=== PATIENT | female | born 2000 | race Native Hawaiian/Other Pacific Islander ===

== ENCOUNTER 2018-07-23 22:40 | Emergency (ER) | payer OTHER ==
[~2018-07-23] VITALS: Ht 147.3 cm; Wt 59.1 kg
[2018-07-23] MEDS ORDERED: CYCLOBENZAPRINE 10 MG TAB PO ONE (23:45)
[2018-07-23] MEDS ORDERED: ONDANSETRON 4MG/2ML VIAL (J2405) IV ONE (23:45)
[2018-07-23] MEDS ORDERED: KETOROLAC 30 MG/ML VIAL (J1885) IV ONE (23:45)
[2018-07-24 00:15] LABS: BASO # 0.1 10^3/uL (0.0-0.2); BASO % 0.5 % (0.0-1.0); EOS # 0.1 10^3/uL (0.0-0.50); EOS % 0.5 % (0.0-3.0); HEMATOCRIT 33.7 % (36.0-47.0); HEMOGLOBIN 11.6 g/dl (12.0-15.5); LYMPH # 1.3 10^3/uL (1.5-6.5); LYMPH % 12.4 % (24.0-44.0); MEAN CORPUSCULAR HEMOGLOBIN 30.8 pg (27.0-33.0); MEAN CORPUSCULAR HGB CONC 34.4 g/dl (32.0-36.5); MEAN CORPUSCULAR VOLUME 89.4 fl (80.0-96.0); MONO # 0.7 10^3/uL (0.0-0.8); MONO % 6.6 % (0.0-5.0); NEUTROPHILS # 8.6 10^3/uL (1.8-7.7); NEUTROPHILS % 79.6 % (36.0-66.0); PLATELET COUNT, AUTOMATED 250 10^3/uL (150-450); RED BLOOD COUNT 3.77 10^6/uL (4.00-5.40); WHITE BLOOD COUNT 10.8 10^3/uL (4.0-10.0)
[2018-07-24 00:37] LABS: ALBUMIN 3.6 GM/DL (3.2-5.2); ALT/SGPT 34 U/L (12-78); BILIRUBIN,DIRECT < 0.1 MG/DL (0.0-0.2); BILIRUBIN,TOTAL 0.3 MG/DL (0.2-1.0); BLOOD UREA NITROGEN 6 MG/DL (7-18); CALCIUM LEVEL 8.2 MG/DL (8.5-10.1); CARBON DIOXIDE LEVEL 26 MEQ/L (21-32); CHLORIDE LEVEL 106 MEQ/L (98-107); CPK CREATINE PHOSPHOKINASE 208 U/L (26-192); CREATININE FOR GFR 0.91 MG/DL (0.55-1.30); GLUCOSE, FASTING 101 MG/DL (70-100); LIPASE 71 U/L (73-393); MB/CK RELATIVE INDEX 0.58 (< OR =4); POTASSIUM SERUM 3.9 MEQ/L (3.5-5.1); SODIUM LEVEL 140 MEQ/L (136-145); TOTAL PROTEIN 7.7 GM/DL (6.4-8.2); TROPONIN I < 0.02 NG/ML (< 0.10)
[2018-07-24] MEDS ORDERED: CYCL5TAB PO (01:38)
[2018-07-24] MEDS ORDERED: NS 500 ML IV ONE (01:45)
[2018-07-24 02:09] VITALS: BP 100/57
--- NOTE | 2018-07-24 08:27 | ECGEPIP ---
Stationary ECG Study [facility] - ED Test Date: 2018-07-24 Pat Name: ODILIA DEL CASTILLO Department: Room: - Gender: F Supervisor Offset Plate Preparation: : 2000 Requested By: SINGH Hamilton PA-C Order Number: [id number] Reading MD: Maximo Spring Measurements Intervals [place] Rate: 71 P: -34 WA: 179 QRS: 71 QRSD: 75 T: 38 QT: 363 QTc: 394 Interpretive Statements SINUS RHYTHM INCOMPLETE RIGHT BUNDLE BRANCH BLOCK BENIGN EARLY REPOLARIZATION NO PRIORS FOR COMPARISON Electronically Signed On 07-24-2018 8:27:20 EDT by Maximo Spring
== END 2018-07-24 02:15 | disposition home or self-care (01) ==
LOC: M ED 22:40
DX: M62.838 Other muscle spasm (principal); R79.89 Other specified abnormal findings of blood chemistry; Z79.3 Long term (current) use of hormonal contraceptives; Z87.891 Personal history of nicotine dependence
CPT/HCPCS: 80048; 80076; 82550; 82553; 83690; 84484; 85025; 85379; 93005; 96361; 96374; 96375; 99284; J1885; J2405

== ENCOUNTER 2018-08-10 06:11 | Emergency (ER) | payer OTHER ==
[~2018-08-10] VITALS: Ht 147.3 cm; Wt 59.1 kg
[~2018-08-10 06:11] MED LIST: CYCL5TAB PO
[2018-08-10] MEDS ORDERED: LO ESTRIN PO (06:22)
[2018-08-10] MEDS ORDERED: KETOROLAC 60 MG/2 ML VIAL (J1885) IM ONE (06:30)
[2018-08-10] MEDS ORDERED: SKEL800T97 PO (07:09)
[2018-08-10] MEDS ORDERED: PERCOCET 5MG/325MG TAB PO ONE (07:15)
[2018-08-10 07:25] VITALS: BP 141/81
== END 2018-08-10 07:34 | disposition home or self-care (01) ==
LOC: M ED 06:11
DX: M62.830 Muscle spasm of back (principal); G89.29 Other chronic pain; M54.9 Dorsalgia, unspecified; Z79.3 Long term (current) use of hormonal contraceptives; Z79.899 Other long term (current) drug therapy
CPT/HCPCS: 96372; 99283; J1885

== ENCOUNTER → 2018-08-28 | Outpatient (CLI) | payer OTHER ==
[~2018-08-28] MED LIST changes: +LO ESTRIN PO; +SKEL800T97 PO
== END ==
LOC: M PLARAD 09:07
PROVIDERS: ATTEND Physician Assistant Medical
DX: M25.561 Pain in right knee (principal)

== ENCOUNTER → 2018-08-28 | Outpatient (CLI) | payer OTHER ==
--- NOTE | 2018-08-28 12:31 | REP ---
MRI THORACIC SPINE WITHOUT CONTRAST: HISTORY: Dorsalgia. TECHNIQUE: Sagittal and axial T1- and T2-weighted scans are acquired in the usual fashion with and without fat saturation. Sequences include spin echo, turbo spin-echo, and STIR imaging sequences. MRI FINDINGS: Thoracic vertebral body heights are preserved. Alignment is normal. Thoracic cord is normal in coarse, caliber, and signal intensity on T1- and T2-weighted scans. No thoracic disc herniation is seen. No neural foraminal lesion is seen. No central canal stenosis or cord compression is seen. No bony destructive lesion noted. No extra spinal abnormality. IMPRESSION: Normal MRI thoracic spine. Electronically Signed by Ronny Cardoso MD 08/28/2018 03:34 P
--- NOTE | 2018-08-28 13:49 | REP ---
MRI RIGHT KNEE: TECHNIQUE: Axial proton density fat saturation, sagittal proton density T2 STIR, water excitation, coronal proton density, proton density fat saturation. There is no evidence of a meniscal tear. The cruciate and collateral ligaments are intact. The extensor mechanism is intact. The cartilaginous surfaces appear smooth. No osteochondral defect is seen. There is no bone marrow edema or occult fracture. The medial and lateral patellar retinacula are intact. There is a normal amount of joint fluid. No popliteal cyst is seen. IMPRESSION: Essentially negative MRI right knee. Electronically Signed by Darin Peterson MD 08/28/2018 02:36 P
== END ==
LOC: M PLARAD 09:11
PROVIDERS: ATTEND Emergency Medicine
DX: M54.9 Dorsalgia, unspecified (principal)

== ENCOUNTER 2019-02-11 07:10 | Emergency (ER) | payer OTHER ==
[~2019-02-11] VITALS: Ht 147.3 cm; Wt 65.8 kg
[2019-02-11 07:11] VITALS: BP 118/71
[2019-02-11] MEDS ORDERED: CELE1CAP4 PO (07:18)
[2019-02-11] MEDS ORDERED: ZOLO50TA PO (07:18)
[2019-02-11] MEDS ORDERED: TIZA4CAP PO (07:18)
[2019-02-11] MEDS ORDERED: GABA600T4 PO (07:18)
[2019-02-11] MEDS ORDERED: KETOROLAC 60 MG/2 ML VIAL (J1885) IM ONE (07:45)
== END 2019-02-11 08:31 | disposition home or self-care (01) ==
LOC: M ED 07:10
DX: G89.29 Other chronic pain (principal); M54.9 Dorsalgia, unspecified; M62.838 Other muscle spasm; Z79.899 Other long term (current) drug therapy
CPT/HCPCS: 96372; 99282; J1885

== ENCOUNTER 2019-05-03 09:38 | Emergency (ER) | payer OTHER ==
[~2019-05-03] VITALS: Ht 147.3 cm; Wt 74.1 kg
[~2019-05-03 09:38] MED LIST changes: +CELE1CAP4 PO; +GABA600T4 PO; +TIZA4CAP PO; +ZOLO50TA PO
[2019-05-03] MEDS ORDERED: LIDOCAINE 5% (LIDODERM) PATCH TD ONE (11:15)
[2019-05-03] MEDS ORDERED: NAPROXEN 250 MG TAB PO ONE (11:45)
[2019-05-03] MEDS ORDERED: CYCLOBENZAPRINE 10 MG TAB PO ONE (11:45)
[2019-05-03] MEDS ORDERED: LIDO5DIS41 TOP (12:21)
[2019-05-03 12:31] VITALS: BP 111/55
[2019-05-03] MEDS ORDERED: **NOTE PATIENT COMMENT** MISC XX SCH (21:00)
== END 2019-05-03 12:48 | disposition home or self-care (01) ==
LOC: M ED 09:38
DX: G89.29 Other chronic pain (principal); M54.6 Pain in thoracic spine; Z79.899 Other long term (current) drug therapy

== ENCOUNTER 2019-06-28 12:31 | Emergency (ER) | payer OTHER ==
[~2019-06-28] VITALS: Ht 177.8 cm; Wt 81.8 kg
[~2019-06-28 12:31] MED LIST changes: +LIDO5DIS41 TOP
[2019-06-28 12:32] VITALS: BP 118/70
[2019-06-28] MEDS ORDERED: METH1TAB40 PO (12:40)
[2019-06-28] MEDS ORDERED: KETOROLAC 30 MG/ML 1ML VIAL IM ONE (13:00)
[2019-06-28] MEDS ORDERED: ACETAMINOPHEN 500 MG TAB PO ONE (13:00)
[2019-06-28] MEDS ORDERED: LOES1TAB12 PO (13:05)
[2019-06-28] MEDS ORDERED: FLUV25TA2 PO (13:05)
[2019-06-28] MEDS ORDERED: TRAZ-252 PO (13:05)
[2019-06-28] MEDS ORDERED: PRAZ1CAP PO (13:05)
[2019-06-28] MEDS ORDERED: VIST25CA PO (13:05)
[2019-06-28 13:14] LABS: BASO % 0.4 % (0.0-1.0); EOS % 0.4 % (0.0-3.0); HEMATOCRIT 37.1 % (36.0-47.0); HEMOGLOBIN 12.8 g/dl (12.0-15.5); LYMPH % 13.6 % (24.0-44.0); MEAN CORPUSCULAR HEMOGLOBIN 29.2 pg (27.0-33.0); MEAN CORPUSCULAR HGB CONC 34.5 g/dl (32.0-36.5); MEAN CORPUSCULAR VOLUME 84.7 fl (80.0-96.0); MONO # 0.3 10^3/uL (0.0-0.8); MONO % 3.8 % (0.0-5.0); NEUTROPHILS # 6.2 10^3/uL (1.5-8.5); NEUTROPHILS % 81.7 % (36.0-66.0); PLATELET COUNT, AUTOMATED 303 10^3/uL (150-450); RED BLOOD COUNT 4.38 10^6/uL (4.00-5.40); WHITE BLOOD COUNT 7.6 10^3/uL (4.0-10.0)
[2019-06-28] MEDS ORDERED: IBUP-1022 PO (13:42)
[2019-06-28] MEDS ORDERED: ACET-683 PO (13:42)
[2019-06-29] MEDS ORDERED: AUGM875T28 PO (18:18)
[2019-06-29] MEDS ORDERED: ZOFR4TAB16 PO (18:18)
[2019-06-29] MEDS ORDERED: KETO10TAB PO (18:18)
== END 2019-06-28 13:50 | disposition home or self-care (01) ==
LOC: M ED 12:31
DX: M54.5 Low back pain (principal); M54.6 Pain in thoracic spine; G89.29 Other chronic pain; F41.9 Anxiety disorder, unspecified; F32.9 Major depressive disorder, single episode, unspecified; F17.290 Nicotine dependence, other tobacco product, uncomplicated; Z79.899 Other long term (current) drug therapy; Z79.3 Long term (current) use of hormonal contraceptives
CPT/HCPCS: 36415; 84702; 85025; 96372; 99282; J1885

== ENCOUNTER 2019-06-29 13:36 | Emergency (ER) | payer OTHER ==
[~2019-06-29] VITALS: Ht 147.3 cm; Wt 81.0 kg
[~2019-06-29 13:36] MED LIST changes: +ACET-683 PO; +FLUV25TA2 PO; +IBUP-1022 PO; +LOES1TAB12 PO; +METH1TAB40 PO; +PRAZ1CAP PO; +TRAZ-252 PO; +VIST25CA PO
[2019-06-29] MEDS ORDERED: KETOROLAC 30 MG/ML 1ML VIAL IV ONE (14:00)
[2019-06-29] MEDS ORDERED: NS 1,000 ML IV ONE (14:00)
[2019-06-29] MEDS ORDERED: ONDANSETRON 4MG/2ML VIAL IV ONE (14:00)
[2019-06-29 14:29] LABS: BASO % 0.7 % (0.0-1.0); EOS # 0.1 10^3/uL (0.0-0.5); HEMATOCRIT 39.7 % (36.0-47.0); HEMOGLOBIN 13.3 g/dl (12.0-15.5); LYMPH # 1.3 10^3/uL (1.5-5.0); LYMPH % 22.3 % (24.0-44.0); MEAN CORPUSCULAR HEMOGLOBIN 28.9 pg (27.0-33.0); MEAN CORPUSCULAR HGB CONC 33.5 g/dl (32.0-36.5); MEAN CORPUSCULAR VOLUME 86.1 fl (80.0-96.0); MONO # 0.4 10^3/uL (0.0-0.8); MONO % 6.5 % (0.0-5.0); NEUTROPHILS # 4.1 10^3/uL (1.5-8.5); NEUTROPHILS % 69.2 % (36.0-66.0); PLATELET COUNT, AUTOMATED 353 10^3/uL (150-450); RED BLOOD COUNT 4.61 10^6/uL (4.00-5.40)
[2019-06-29 14:55] LABS: ALBUMIN 3.9 GM/DL (3.2-5.2); ALT/SGPT 118 U/L (12-78); BILIRUBIN,DIRECT 2.2 MG/DL (0.0-0.2); BILIRUBIN,TOTAL 2.7 MG/DL (0.2-1.0); BLOOD UREA NITROGEN 8 MG/DL (7-18); CALCIUM LEVEL 9.1 MG/DL (8.5-10.1); CARBON DIOXIDE LEVEL 28 MEQ/L (21-32); CHLORIDE LEVEL 104 MEQ/L (98-107); CREATININE FOR GFR 0.96 MG/DL (0.55-1.30); GLUCOSE, FASTING 98 MG/DL (70-100); LIPASE 129 U/L (73-393); POTASSIUM SERUM 3.8 MEQ/L (3.5-5.1); SODIUM LEVEL 137 MEQ/L (136-145); TOTAL PROTEIN 8.6 GM/DL (6.4-8.2)
[2019-06-29 15:09] LABS: HCG, SERUM QUALITATIVE NEGATIVE (NEGATIVE)
[2019-06-29] MEDS ORDERED: ISOVUE-370 76% 100ML VIAL As Ordered ONE (15:22)
--- NOTE | 2019-06-29 16:48 | REP ---
CT ABDOMEN AND PELVIS WITH IV CONTRAST: TECHNIQUE: Axial contrast enhanced images from the lung bases to the pubic symphysis using 100 mL Isovue 370 intravenous contrast material with multiplanar reformations. Visualized lung bases demonstrate mild dependent atelectatic changes. No mass is seen in the liver. The gallbladder is mildly distended. There are gallstones in the dependent portion of the gallbladder. Central common hepatic duct and intrahepatic bile duct dilatation is present. The distal common bile duct is not dilated. Pancreatic duct is not dilated. Spleen is normal in size with no intrinsic abnormality. Adrenals, pancreas, and kidneys are normal. There is no abdominal aortic aneurysm. There is no adrenopathy. There is no free air or free fluid. There is no bowel wall thickening. The appendix is normal. There is no pelvic mass. Urinary bladder is not well distended and not well evaluated. IMPRESSION: Gallstones in the gallbladder, which is mildly distended. There appears to be mild central intrahepatic biliary dilatation and mild common hepatic duct dilatation. Distal common bile duct is not dilated. Further evaluation may be made with ultrasound. Electronically Signed by Darin Peterson MD 06/29/2019 05:05 P
--- NOTE | 2019-06-29 17:42 | REPVR ---
PROCEDURE INFORMATION: Exam: US Abdomen Limited, Right Upper Quadrant Exam date and time: 06/29/2019 4:58 PM Age: 18 years old Clinical indication: Abdominal pain; Epigastric TECHNIQUE: Imaging protocol: Real-time ultrasound of the abdomen with image documentation. Examination was focused on the right upper quadrant. COMPARISON: CT ABD W/IV CONTRAST ONLY 06/29/2019 3:21 PM FINDINGS: Liver: Normal. No masses. Gallbladder: The gallbladder is moderately distended. A mobile shadowing stone is noted within the gallbladder. Borderline gallbladder wall thickening is present. There is no pericholecystic fluid. Common bile duct: The common bile duct is abnormally dilated, measuring 13 mm. A 6 mm slightly hyperechoic filling defect is present within the CBD, possibly representing a stone. Pancreas: Visualized pancreas is unremarkable. Right kidney: Normal. No mass. No hydronephrosis. IMPRESSION: Cholelithiasis and probable choledocholithiasis. The common bile duct is abnormally dilated, measuring 13 mm. Further evaluation is recommended. Electronically signed by: Marvin Murphy On 06/29/2019 17:41:48 PM
[2019-06-29 18:00] VITALS: BP 128/82
[2019-06-29] MEDS ORDERED: ZOFR4TAB16 PO (18:18)
[2019-06-29] MEDS ORDERED: KETO10TAB PO (18:18)
[2019-06-29] MEDS ORDERED: AUGM875T28 PO (18:18)
--- NOTE | 2019-06-30 09:35 | ED PDOC ---
Post-Departure Follow-Up dr armenta faxed formal report of gb us and ct abd/p for fu Dario Cortes MD Jun 30, 2019 09:35
[2019-06-30 10:58] LABS: HEPATITIS A ANTIBODY IGM NEGATIVE (NEGATIVE); HEPATITIS B CORE ANTIBODY IGM NEGATIVE (NEGATIVE); HEPATITIS B SURFACE ANTIGEN NEGATIVE (NEGATIVE); HEPATITIS C VIRUS ABY INDEX 0.5 INDEX (<0.8)
[2019-06-30] MEDS ORDERED: PRAZ5CAP22 PO (17:21)
[2019-06-30] MEDS ORDERED: ACET-907 PO (17:21)
[2019-06-30] MEDS ORDERED: FLUV50TA PO (17:27)
[2019-06-30] MEDS ORDERED: MIRT1TAB15 PO (17:27)
[2019-06-30] MEDS ORDERED: HYDR50CA2 PO (17:27)
[2019-06-30] MEDS ORDERED: LOES1TAB7 PO (17:27)
== END 2019-06-29 18:33 | disposition home or self-care (01) ==
LOC: M ED 13:36
DX: N39.0 Urinary tract infection, site not specified (principal); K80.20 Calculus of gallbladder without cholecystitis without obstruction; K83.8 Other specified diseases of biliary tract; K75.9 Inflammatory liver disease, unspecified; M54.5 Low back pain; Z79.899 Other long term (current) drug therapy; Z79.3 Long term (current) use of hormonal contraceptives
CPT/HCPCS: 36415; 74160; 76705; 80048; 80076; 81001; 83690; 84703; 85025; 86705; 86709; 86803; 87088; 87186; 87340; 96361; 96374; 96375; 99284; J1885; J2405; Q9967

== ENCOUNTER 2019-06-30 14:59 | Inpatient (IN) | payer OTHER ==
[~2019-06-30] VITALS: Ht 147.3 cm; Wt 81.0 kg
[~2019-06-30 14:59] MED LIST changes: +AUGM875T28 PO; +KETO10TAB PO; +ZOFR4TAB16 PO
[2019-06-30] MEDS ORDERED: MORPHINE 4 MG/ML 1ML VIAL/SYRINGE (J2270) IV ONE ×2 (15:30→17:15)
[2019-06-30] MEDS ORDERED: ONDANSETRON 4MG/2ML VIAL IV ONE ×2 (15:30→18:00)
[2019-06-30 16:07] LABS: BASO % 0.6 % (0.0-1.0); EOS # 0.1 10^3/uL (0.0-0.5); HEMATOCRIT 38.4 % (36.0-47.0); HEMOGLOBIN 13.1 g/dl (12.0-15.5); LYMPH # 1.5 10^3/uL (1.5-5.0); LYMPH % 22.5 % (24.0-44.0); MEAN CORPUSCULAR HEMOGLOBIN 29.5 pg (27.0-33.0); MEAN CORPUSCULAR HGB CONC 34.1 g/dl (32.0-36.5); MEAN CORPUSCULAR VOLUME 86.5 fl (80.0-96.0); MONO # 0.4 10^3/uL (0.0-0.8); MONO % 6.5 % (0.0-5.0); NEUTROPHILS # 4.7 10^3/uL (1.5-8.5); NEUTROPHILS % 69.1 % (36.0-66.0); PLATELET COUNT, AUTOMATED 336 10^3/uL (150-450); RED BLOOD COUNT 4.44 10^6/uL (4.00-5.40); WHITE BLOOD COUNT 6.8 10^3/uL (4.0-10.0)
[2019-06-30 16:36] LABS: ALBUMIN 3.8 GM/DL (3.2-5.2); ALT/SGPT 100 U/L (12-78); BILIRUBIN,TOTAL 3.4 MG/DL (0.2-1.0); BLOOD UREA NITROGEN 6 MG/DL (7-18); CALCIUM LEVEL 8.8 MG/DL (8.5-10.1); CARBON DIOXIDE LEVEL 28 MEQ/L (21-32); CHLORIDE LEVEL 103 MEQ/L (98-107); GLUCOSE, FASTING 103 MG/DL (70-100); LIPASE 80 U/L (73-393); POTASSIUM SERUM 3.7 MEQ/L (3.5-5.1); SODIUM LEVEL 137 MEQ/L (136-145); TOTAL PROTEIN 8.1 GM/DL (6.4-8.2)
[2019-06-30] MEDS ORDERED: CIPROFLOXACIN 400 MG in IV 1 EA IV ONE (17:00)
[2019-06-30] MEDS ORDERED: MAALOX 30 ML SUSP *UDC PO PRN (17:15)
[2019-06-30] MEDS ORDERED: MOM 30ML SUSPENSION UDC PO PRN (17:15)
[2019-06-30] MEDS ORDERED: ACETAMINOPHEN TAB 650MG DOSE (2X325MG) PO PRN (17:15)
--- NOTE | 2019-06-30 17:20 | HPEPDOC ---
General Date of Admission Date of Service: Jun 30, 2019 Chief Complaint The patient is a 18-year-old female admitted with a reason for visit of Abdominal Pain. Source: Patient Exam Limitations: No limitations Timing/Duration: Day(s) (3) Severity: Moderate, Severe Associated Symptoms: Loss of appetite, Nausea, Vomiting History of Present Illness 18-year-old female with past medical history of PTSD, chronic back pain presents to the ER for persistent abdominal pain for the past 3 days. She states the pain first began on Friday. The pain was associated with nausea and multiple episodes of vomiting. She also noted that her urine became dark and was concerning. When she came to the ER on Friday, they initially thought she just had intractable back pain. She is given some pain medications and discharged at that time. The pain however came back, the following day and she came back to the ER for further evaluation. At that time there noted that she had gallstones but patient was sent home. Patient came back today as pain continued to get worse. Upon evaluation in the ER, patient had increasing bilirubin levels as well as increasing LFTs. Ultrasound shows common bile duct dilation. Patient to be admitted to hospital service for further management of choledocholithiasis. Patient denies any recent fevers, chills, shortness of breath, chest pain. She has had one episode of vomiting today and still feels nauseous. Pain radiates to her back described as colicky in nature. Home Medications Scheduled Fluvoxamine Maleate (Fluvoxamine Maleate) 50 Mg Tablet, 25 MG PO QHS, (Reported) Hydroxyzine Pamoate (Hydroxyzine Pamoate) 50 Mg Capsule, 50 MG PO TID, (Reported) Mirtazapine (Mirtazapine) 15 Mg Tab.rapdis, 15 MG PO QHS, (Reported) Norethindrone-E.estradiol-Iron (Loestrin Fe 1-20 Tablet) 1 Each Tablet, 1 TAB PO QHS, (Reported) Prazosin HCl (Prazosin HCl) 5 Mg Capsule, 5 MG PO QHS, (Reported) Trazodone HCl (Trazodone HCl) 50 Mg Tablet, 50 MG PO QHS, (Reported) Scheduled PRN Acetaminophen (Tylenol) 325 Mg Tablet, 650 MG PO Q6H PRN for PAIN, (Reported) Methocarbamol (Methocarbamol) 500 Mg Tablet, 500 MG PO TID PRN for SPASMS, (Reported) Allergies Coded Allergies: No Known Allergies (Unverified , 02/11/19) Past Medical History Medical History PTSD, intractable back pain Surgical History No history of surgery Family History Family history of cancer on both sides. Mother was diabetic and had issues with gallstones Father also had gallstones Social History * Smoker: Denies Alcohol: Denies Drugs: denies Recent Travel/Sick Contacts: Denies: Recent travel, Recent sick contacts Psychosocial History: PTSD Patient is a home appliance washing machine mechanic A-FIB/CHADSVASC A-FIB History Current/History of A-Fib/PAF?: No Review of Systems Constitutional: Denies: Chills, Fever, Malaise, Weakness, Fatigue Eyes: Denies: Pain, Vision change ENT: Denies: Head Aches, Ear Pain, Sore Throat Skin: Reports: Jaundice; Denies: Rash, Lesions Pulmonary: Denies: Dyspnea, Cough, Pleuritic Chest Pain Cardiovascular: Denies: Chest Pain, Palpitations, Orthopnea, Edema Gastrointestinal: Reports: Nausea, Vomiting, Abdominal Pain; Denies: Diarrhea, Constipation Genitourinary: Denies: Dysuria, Frequency Musculoskeletal: Reports: Back Pain Neurological: Denies: Weakness, Numbness, Change in speech, Confusion Psych: Reports: Mood Normal; Denies: Thoughts of Self Harm, Thoughts of Harming Other Physical Examination General Exam: Positive: Alert, Cooperative, Moderate Distress (patient seen to be rocking back and forth with her knees to her chest, appears to be uncomfortable) Eye Exam: Positive: PERRLA, Conjunctiva & lids normal, EOMI; Negative: Sclera icteric ENT Exam: Positive: Atraumatic, Mucous membr. moist/pink, Other ENT (jaundice noted under the tongue) Chest Exam: Positive: Clear to auscultation, Normal air movement; Negative: Rales, Rhonchi, Wheezing Heart Exam: Positive: Rate Normal, Regular Rhythm, Normal S1, Normal S2; Negative: Murmurs Abdomen Exam: Positive: Normal bowel sounds, Soft, Tenderness (tender to palpation in the right upper quadrant. De Santiago sign is positive.); Negative: Mass Extremity Exam: Negative: Clubbing, Cyanosis, Edema Skin Exam: Positive: Nl turgor and temperature; Negative: Rash, Breakdown Neuro Exam: Positive: Normal Gait, Normal Speech, Strength at 5/5 X4 ext, Normal Tone, Sensation Intact, Cranial Nerves 3-12 NL Psych Exam: Positive: Mental status NL, Mood NL Vital Signs Vital Signs Date Time Temp Pulse Resp B/P (MAP) Pulse Ox O2 Delivery O2 Flow Rate FiO2 06/30/19 17:15 15 06/30/19 16:11 98.2 59 129/86 (100) 100 Room Air Laboratory Data Labs 24H Laboratory Tests 2 06/30/19 15:53: POC Beta HCG, Quantitative < 5.0 06/30/19 15:54: Immature Granulocyte % (Auto) 0.3, Neutrophils (%) (Auto) 69.1H, Lymphocytes (%) (Auto) 22.5L, Monocytes (%) (Auto) 6.5H, Eosinophils (%) (Auto) 1.0, Basophils (%) (Auto) 0.6, Neutrophils # (Auto) 4.7, Lymphocytes # (Auto) 1.5, Monocytes # (Auto) 0.4, Eosinophils # (Auto) 0.1, Basophils # (Auto) 0.0, Nucleated Red Blood Cells % (auto) 0.0, Anion Gap 6L, Calcium Level 8.8, Total Bilirubin 3.4H, Direct Bilirubin 3.0H, Aspartate Amino Transf (AST/SGOT) 83H, Alanine Aminotransferase (ALT/SGPT) 100H, Alkaline Phosphatase 142H, Total Protein 8.1, Albumin 3.8, Albumin/Globulin Ratio 0.88L, Lipase 80 CBC/BMP Laboratory Tests 06/30/19 15:54 RAD Interpretation STUDY: ultrasound abdomen Rad Actions: Report Reviewed, Discussed with the pt RAD Interpretation: Other Result Comments: (cholelithiasis, evidence of common bile duct stone. Positive sonographic De Santiago sign) Assessment/Plan 18-year-old female presents to the ER for intractable abdominal pain associated with nausea and vomiting. Agent found to have gallstones on imaging LFTs also consistent with choledocholithiasis. Given worsening bilirubin over the past several days, patient to be admitted to the hospital for further evaluation and treatment. GI doctors consultation recommending MRCP at this time. If MRCP is positive, will proceed to ERCP. She will likely need cholecystectomy in the near future. We'll start patient on antibiotics for now will follow up imaging studies tomorrow morning. Plan / VTE VTE Prophylaxis Ordered?: Yes Plan Plan Choledocholithiasis Patient is currently having severe pain. Labs and imaging consistent with choledocholithiasis. - Nothing by mouth after midnight - Morphine for pain control when necessary - MRCP in the morning - if positive, will proceed with ERCP as per GI - Follow-up GI recommendations - Will likely need surgical consult for cholecystectomy in near future - Start Zosyn 3.375 g every 8 hours - Trend LFTs PTSD Established issue. - Continue prazosin, trazodone, mirtazapine as per home dose Chronic back pain - Continue with Robaxin as per home dose DVT PPx: SCDs Diet: Make NPO Activity: Continue Current Medications: Increase Pain Meds, Start Antibiotics Diagnostics: Check Labs, Repeat Labs in AM, MRI Anticipated Discharge: Home CRISTIN ARCE MD Jun 30, 2019 17:20
--- NOTE | 2019-06-30 17:20 | REP ---
REASON: Followup. COMPARISON: Yesterday, which showed cholelithiasis and a borderline gallbladder wall. The common bile duct had a maximal dimension of 1.3 cm and a 6 mm sized filling defect was suspected within this dilatated common bile duct. The examination was otherwise unremarkable. Today's examination shows cholelithiasis, status quo. The gallbladder wall is markedly thickened measuring 7 mm and with some evidence today of slight pericholecystic edema. The technologist has indicated on the worksheet that the patient experienced a sonographic De Santiago sign when imaging the gallbladder. The common bile duct measures 1.1 cm, and the intraductal echogenicity seen yesterday persists today. The liver is unchanged and again seen to be within normal limits. The imaged portion of the pancreas is unremarkable, although it is seen in a markedly limited fashion. There is no significant change in appearance of the right kidney. IMPRESSION: 1. Known cholelithiasis. 2. Gallbladder wall thickening and some evidence of early pericholecystic edema. 3. Persistent intraductal echogenic focus within the common bile duct in a persistently dilated common bile duct, as described above. 4. Positive sonographic De Santiago sign. 5. Other findings as described above. Electronically Signed by Gamal Tello DO 07/01/2019 10:49 A
[2019-06-30] MEDS ORDERED: ACET-907 PO (17:21)
[2019-06-30] MEDS ORDERED: PRAZ5CAP22 PO (17:21)
[2019-06-30] MEDS ORDERED: FLUV50TA PO (17:27)
[2019-06-30] MEDS ORDERED: HYDR50CA2 PO (17:27)
[2019-06-30] MEDS ORDERED: LOES1TAB7 PO (17:27)
[2019-06-30] MEDS ORDERED: MIRT1TAB15 PO (17:27)
[2019-06-30] MEDS ORDERED: PILL CUTTER 1 EACH XX PRN (17:45)
[2019-06-30] MEDS ORDERED: methocarbamoL 500 MG TAB PO PRN (17:45)
--- NOTE | 2019-06-30 19:17 | REPVR ---
PROCEDURE INFORMATION: Exam: MR Abdomen Without Contrast Exam date and time: 06/30/2019 7:05 PM Age: 18 years old Clinical indication: Pain and abnormal findings; Abnormal radiologic finding of the abdomen; Radiologic exam and body structure: US; Abdominal pain; Acute; Additional info: Suspected choledocolithiasis TECHNIQUE: Imaging protocol: MR of the abdomen without contrast. 3D rendering: MIP and/or 3D reconstructed images were created by the technologist. COMPARISON: GALLBLADDER US 06/30/2019 3:57 PM FINDINGS: Pleura: Trace bilateral pleural effusions. Liver: No mass. Gallbladder and bile ducts: Cholelithiasis. Common bile duct is dilated measuring 11 mm. There is filling defect in the common bile duct measuring approximately 8 mm representing choledocholithiasis. Pancreas: Unremarkable. No ductal dilation. Spleen: Unremarkable. No splenomegaly. Adrenals: Unremarkable. No mass. Kidneys and ureters: Unremarkable. No solid mass. No hydronephrosis. Stomach and bowel: Visualized stomach and intestines are unremarkable. Intraperitoneal space: No free fluid. Arteries: No abdominal aortic aneurysm. Bones/joints: Unremarkable. Soft tissues: Unremarkable. IMPRESSION: Cholelithiasis. Choledocholithiasis. Electronically signed by: Sonu Ennis On 06/30/2019 19:16:51 PM
[2019-06-30] MEDS: PIPERACILLIN/TAZOBACTAM SOD 3.375 GM in D5W MINI-BAG PLUS 50 ML IV SCH (19:27)
[2019-06-30] MEDS: DOCUSATE SODIUM 100 MG CAP PO SCH (21:32)
[2019-06-30] MEDS: traZODone 50 MG TAB PO SCH (21:32)
[2019-06-30] MEDS: hydrOXYzine 50 MG TAB PO SCH (21:32)
[2019-06-30] MEDS: MORPHINE 4 MG/ML 1ML VIAL/SYRINGE (J2270) IV PRN (21:32)
[2019-06-30] MEDS: MIRTAZAPINE 15 MG TAB PO SCH (21:32)
[2019-06-30 22:00] VITALS: BP 141/89
[2019-06-30] MEDS: fluvoxaMINE MALEATE 50 MG TAB PO SCH (22:50)
[2019-06-30] MEDS: PRAZOSIN 1 MG CAP PO SCH (22:51)
[2019-07-01] VITALS (7 sets, daily range): BP systolic 123–164; BP diastolic 62–96
[2019-07-01] MEDS: PIPERACILLIN/TAZOBACTAM SOD 3.375 GM in D5W MINI-BAG PLUS 50 ML IV SCH ×3 (01:51→19:02)
[2019-07-01 07:31] LABS: HEMATOCRIT 35.4 % (36.0-47.0); HEMOGLOBIN 12.3 g/dl (12.0-15.5); MEAN CORPUSCULAR HEMOGLOBIN 29.6 pg (27.0-33.0); MEAN CORPUSCULAR HGB CONC 34.7 g/dl (32.0-36.5); MEAN CORPUSCULAR VOLUME 85.3 fl (80.0-96.0); PLATELET COUNT, AUTOMATED 310 10^3/uL (150-450); RED BLOOD COUNT 4.15 10^6/uL (4.00-5.40); WHITE BLOOD COUNT 7.1 10^3/uL (4.0-10.0)
[2019-07-01 07:59] LABS: ALBUMIN 3.2 GM/DL (3.2-5.2); ALT/SGPT 89 U/L (12-78); BILIRUBIN,TOTAL 4.5 MG/DL (0.2-1.0); BLOOD UREA NITROGEN 5 MG/DL (7-18); CALCIUM LEVEL 8.6 MG/DL (8.5-10.1); CARBON DIOXIDE LEVEL 27 MEQ/L (21-32); CHLORIDE LEVEL 102 MEQ/L (98-107); CREATININE FOR GFR 0.84 MG/DL (0.55-1.30); GLUCOSE, FASTING 89 MG/DL (70-100); POTASSIUM SERUM 3.4 MEQ/L (3.5-5.1); SODIUM LEVEL 135 MEQ/L (136-145); TOTAL PROTEIN 7.4 GM/DL (6.4-8.2)
[2019-07-01] MEDS: DOCUSATE SODIUM 100 MG CAP PO SCH ×2 (09:08→20:44)
[2019-07-01] MEDS: hydrOXYzine 50 MG TAB PO SCH ×3 (09:08→20:44)
--- NOTE | 2019-07-01 12:15 | IPNPDOC ---
Subjective Date Seen The patient was seen on 07/01/19. Subjective Chief Complaint/HPI Patient seen and examined at bedside this morning. Patient reports that she was relatively pain-free overnight with the use of morphine. She currently states that she has some mild abdominal pain this morning but no nausea or vomiting reported. She denies any recent fevers, chills, short of breath, chest pain. Patient or stands that she will go for procedure later this afternoon to get of the gallstone. Patient was also informed that we will obtain a surgical consult to see whether or not the gallbladder will need to come out on this admission. Patient had all questions answered at bedside. Other systems 10 point review of systems was negative except for what is stated above in the subjective. Objective Physical Examination General Exam: Positive: Alert, Cooperative, No Acute Distress Eye Exam: Positive: PERRLA, Conjunctiva & lids normal, EOMI; Negative: Sclera icteric ENT Exam: Positive: Atraumatic, Mucous membr. moist/pink, Other ENT (jaundice noted under the tongue) Chest Exam: Positive: Clear to auscultation, Normal air movement; Negative: Rales, Rhonchi, Wheezing Heart Exam: Positive: Rate Normal, Regular Rhythm, Normal S1, Normal S2; Negative: Murmurs Abdomen Exam: Positive: Normal bowel sounds, Soft, Tenderness (tender to palpation in the right upper quadrant. De Santiago sign is positive.); Negative: Mass Extremity Exam: Negative: Clubbing, Cyanosis, Edema Skin Exam: Positive: Nl turgor and temperature; Negative: Rash, Breakdown Neuro Exam: Positive: Normal Gait, Normal Speech, Strength at 5/5 X4 ext, Normal Tone, Sensation Intact, Cranial Nerves 3-12 NL Psych Exam: Positive: Mental status NL, Mood NL Assessment /Plan Assessment 18-year-old female presents to the ER for intractable abdominal pain associated with nausea and vomiting. Patient currently has known gallstones. MRCP done yesterday afternoon confirmed. Patient to undergo ERCP later this afternoon with GI. Surgical consult was called and will evaluate for possible inpatient versus outpatient cholecystectomy. Antibiotics were changed as per GI Plan/VTE VTE Prophylaxis Ordered?: Yes Plan Diet: Make NPO Activity: Continue Current Medications: Decrease pain Meds, Taper Antibiotics Choledocholithiasis Patient is currently having severe pain. Labs and imaging consistent with choledocholithiasis. MRCP consistent with gallstones. - ERCP today - Morphine for pain control when necessary - Follow-up GI recommendations - Follow-up surgical consult - Continue with Flagyl - Trend LFTs PTSD Established issue. - Continue prazosin, trazodone, mirtazapine as per home dose Chronic back pain - Continue with Robaxin as per home dose DVT PPx: SCDs VS, I&O, 24H, Fishbone Vital Signs/I&O Vital Signs Date Time Temp Pulse Resp B/P (MAP) Pulse Ox O2 Delivery O2 Flow Rate FiO2 07/01/19 06:00 98.3 67 13 123/62 (82) 94 Room Air I&O- Last 24 Hours up to 6 AM 07/01/19 06:00 Intake Total 760 ml Output Total 0 ml Balance 760 ml Laboratory Data 24H LABS Laboratory Tests 2 06/30/19 15:53: POC Beta HCG, Quantitative < 5.0 06/30/19 15:54: Immature Granulocyte % (Auto) 0.3, Neutrophils (%) (Auto) 69.1H, Lymphocytes (%) (Auto) 22.5L, Monocytes (%) (Auto) 6.5H, Eosinophils (%) (Auto) 1.0, Basophils (%) (Auto) 0.6, Neutrophils # (Auto) 4.7, Lymphocytes # (Auto) 1.5, Monocytes # (Auto) 0.4, Eosinophils # (Auto) 0.1, Basophils # (Auto) 0.0, Nucleated Red Blood Cells % (auto) 0.0, Anion Gap 6L, Calcium Level 8.8, Total Bilirubin 3.4H, Direct Bilirubin 3.0H, Aspartate Amino Transf (AST/SGOT) 83H, Alanine Aminotransferase (ALT/SGPT) 100H, Alkaline Phosphatase 142H, Total Protein 8.1, Albumin 3.8, Albumin/Globulin Ratio 0.88L, Lipase 80 07/01/19 07:06: Nucleated Red Blood Cells % (auto) 0.0, Anion Gap 6L, Calcium Level 8.6, Total Bilirubin 4.5H, Aspartate Amino Transf (AST/SGOT) 69H, Alanine Aminotransferase (ALT/SGPT) 89H, Alkaline Phosphatase 135H, Total Protein 7.4, Albumin 3.2, Albumin/Globulin Ratio 0.76L CBC/BMP Laboratory Tests 06/30/19 15:54 07/01/19 07:06 CRISTIN ARCE MD Jul 01, 2019 12:15
[2019-07-01] MEDS: ONDANSETRON 4MG/2ML VIAL IV PRN ×2 (13:17→21:00)
[2019-07-01] MEDS: MORPHINE 4 MG/ML 1ML VIAL/SYRINGE (J2270) IV PRN (13:17)
--- NOTE | 2019-07-01 15:27 | CR.PDOC ---
General Date of Consultation: Jul 01, 2019 Referring Provider: CRISTIN LAI MD Attending Physician: ROYA LEARY MD Consultation Primary physician/ hospitalist: -Dr. Lai Reason for consult: -Choledocholithiasis HPI: 18-year-old female patient with PTSD, chronic back pain, presented to ER for persistent epigastric and right upper quadrant abdominal pain, which started on Friday, associated with nausea and multiple episodes of vomiting, when she came to ER and her symptoms gradually improved and was discharged from ER. Subsequently, she had recurrence of symptoms and was noted to have worsening bilirubin level and dilated CBD, and patient was admitted for further evaluati on. Patient also had MRCP - which showed dilated CBD of 11 mm, and choledocholithiasis. GI was consulted for the same. Currently, patient is still having nausea and colicky intermittent abdominal pain. Pertinent negative GI symptoms: Patient denies fever, sick contacts, recent travel, diarrhea, early satiety or unintentional weight loss. No history of hematemesis, melena or hematochezia. Patient reports regular bowel movements. Review of Systems: GI: as stated above CVS: No chest pain, No palpitations, No leg swelling. RS: No Shortness of breath, No Wheezing, no cough [employer] HE[employer] HELPER: No dizziness, No motor weakness, No sensory problems Hematology: No bruising, No gum bleeding, Musculoskeletal: No joint pain, ambulating well. Skin: No rash : No hematuria, No burning sensation of the urine ENT: No ear discharge/ pain, No dysphagia. Eyes: No photophobia. Jaundice Home medications: reviewed. Antithrombotic agents: -None Medical h/o: As above. Surgical h/o: None on abdomen. Social h/o: Alcohol: -. Denies, smoking:, Denies, IVDA/ drugs: Denies. Family h/o of GI cancers - None Prior Endoscopies: None in [facility] Prior GI evaluations: -None in [facility] Exam: Vitals: reviewed General: Alert and oriented x 3, not in distress HEENT: NO pallor, no icterus. Normal oropharynx, NO cervical lymph nodes. Chest: symmetric with bilateral clear air entry, CVS: S1, S2 heard, normal, no murmurs . Abdomen: non-distended, no surgical scars, soft, non-tender, no palpable masses, normal bowel sounds heard. Rectal exam: Patient refused / Deferred at this time in view of scheduled colonoscopy. Extremities: no pedal edema, pulses palpable. 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 Moves all extremities Skin: no rash. Labs: reviewed. Imaging: reviewed. Ultrasound abdomen, MRCP are reviewed Impression: -. Epigastric and right upper quadrant abdominal pain with nausea and vomiting and abnormal liver panel, and imaging consistent with choledocholithiasis -- needs further management. Recommendations: - Patient educated about the test results, possible differential diagnoses and All questions answered. - Nothing by mouth for now. - IV hydration - Patient will be scheduled for ERCP today - The procedure, indications, risks (acute pancreatitis, bleeding, perforation, infection, hypotension, respiratory depression, allergy, need for endotracheal intubation, surgery, colostomy, cardiac arrest, even ), benefits, limitations (e.g., missing a lesion), and all other alternatives (including no intervention) were explained to the patient who understood and agreed for the procedure. - Please follow operative note for postprocedure recommendations. Plan of care discussed with patient and primary team. Patient verbalized understanding and agreed with the plan. Vital Signs/I&O Vital Signs Date Time Temp Pulse Resp B/P (MAP) Pulse Ox O2 Delivery O2 Flow Rate FiO2 07/01/19 14:00 98.8 81 16 153/93 (113) 97 Room Air I&O- Last 24 Hours up to 6 AM 07/01/19 06:00 Intake Total 760 ml Output Total 0 ml Balance 760 ml Laboratory Data Labs 24H Laboratory Tests 2 06/30/19 15:53: POC Beta HCG, Quantitative < 5.0 06/30/19 15:54: Immature Granulocyte % (Auto) 0.3, Neutrophils (%) (Auto) 69.1H, Lymphocytes (%) (Auto) 22.5L, Monocytes (%) (Auto) 6.5H, Eosinophils (%) (Auto) 1.0, Basophils (%) (Auto) 0.6, Neutrophils # (Auto) 4.7, Lymphocytes # (Auto) 1.5, Monocytes # (Auto) 0.4, Eosinophils # (Auto) 0.1, Basophils # (Auto) 0.0, Nucleated Red Bl ood Cells % (auto) 0.0, Anion Gap 6L, Calcium Level 8.8, Total Bilirubin 3.4H, Direct Bilirubin 3.0H, Aspartate Amino Transf (AST/SGOT) 83H, Alanine Aminotransferase (ALT/SGPT) 100H, Alkaline Phosphatase 142H, Total Protein 8.1, Albumin 3.8, Albumin/Globulin Ratio 0.88L, Lipase 80 07/01/19 07:06: Nucleated Red Blood Cells % (auto) 0.0, Anion Gap 6L, Calcium Level 8.6, Total Bilirubin 4.5H, Aspartate Amino Transf (AST/SGOT) 69H, Alanine Aminotransferase (ALT/SGPT) 89H, Alkaline Phosphatase 135H, Total Protein 7.4, Albumin 3.2, Albumin/Globulin Ratio 0.76L CBC/BMP Laboratory Tests 06/30/19 15:54 07/01/19 07:06 Allergies Coded Allergies: No Known Allergies (Unverified , 02/11/19) Home Medications Scheduled Fluvoxamine Maleate (Fluvoxamine Maleate) 50 Mg Tablet, 25 MG PO QHS, (Reported) Hydroxyzine Pamoate (Hydroxyzine Pamoate) 50 Mg Capsule, 50 MG PO TID, (Reported) Mirtazapine (Mirtazapine) 15 Mg Tab.rapdis, 15 MG PO QHS, (Reported) Norethindrone-E.estradiol-Iron (Loestrin Fe 1-20 Tablet) 1 Each Tablet, 1 TAB PO QHS, (Reported) Prazosin HCl (Prazosin HCl) 5 Mg Capsule, 5 MG PO QHS, (Reported) Trazodone HCl (Trazodone HCl) 50 Mg Tablet, 50 MG PO QHS, (Reported) Scheduled PRN Acetaminophen (Tylenol) 325 Mg Tablet, 650 MG PO Q6H PRN for PAIN, (Reported) Methocarbamol (Methocarbamol) 500 Mg Tablet, 500 MG PO TID PRN for SPASMS, (Reported) ROYA LEARY MD Jul 01, 2019 15:27
[2019-07-01] MEDS ORDERED: ISOVUE-300 61% 50ML VIAL As Ordered ONE (16:15)
[2019-07-01] MEDS ORDERED: dexameTHASONE 4 MG/ML 1ML VIAL (J1100 PER 1MG) As Ordered ONE (16:57)
[2019-07-01] MEDS ORDERED: propofoL 200 MG/20 ML VIAL As Ordered ONE (16:57)
[2019-07-01] MEDS ORDERED: ROCURONIUM BROMIDE 50 MG/5 ML VIAL As Ordered ONE (16:57)
[2019-07-01] MEDS ORDERED: ONDANSETRON 4MG/2ML VIAL As Ordered ONE (16:57)
[2019-07-01] MEDS ORDERED: LIDOCAINE 2% 100MG/5ML SDV (FOR ANES.) As Ordered ONE (16:57)
[2019-07-01] MEDS ORDERED: fentaNYL 100 MCG/2 ML INJECTION (J3010) As Ordered ONE ×2 (16:57→17:05)
[2019-07-01] MEDS ORDERED: MIDAZOLAM INJ 2MG/2ML VIAL (J2250 PER 1MG) As Ordered ONE (16:57)
[2019-07-01] MEDS ORDERED: SUGAMMADEX SODIUM 500 MG/5 ML VIAL (BRIDION) As Ordered ONE (17:14)
[2019-07-01] MEDS ORDERED: KETOROLAC 60 MG/2 ML VIAL As Ordered ONE (17:40)
[2019-07-01] MEDS ORDERED: ONDANSETRON 4MG/2ML VIAL IV PRN (18:15)
[2019-07-01] MEDS ORDERED: LR 1,000 ML IV SCH (18:15)
[2019-07-01] MEDS ORDERED: oxyCODONE 5MG TAB PO PRN (18:15)
[2019-07-01] MEDS ORDERED: LR 1,000 ML IV ONE (18:30)
--- NOTE | 2019-07-01 18:34 | ROOR ---
Patient Name: Le Garcia Procedure Date: 07/01/2019 4:26 PM Date of : 2000 Age: 18 Room: Main OR Gender: Female Note Status: Finalized Procedure: ERCP Indications: Abdominal pain of suspected biliary origin, For therapy of bile duct stone(s), Elevated liver enzymes Providers: Aly Rucker MD Referring MD: 2. Inpatient 2. Inpatient, XIOMARA DODD MD Requesting Provider: Medicines: Monitored Anesthesia Care Complications: No immediate complications. Procedure: Pre-Anesthesia Assessment: - Prior to the procedure, a History and Physical was performed, and patient medications and allergies were reviewed. The patient is competent. The risks and benefits of the procedure and the sedation options and risks were discussed with the patient. All questions were answered and informed consent was obtained. Patient identification and proposed procedure were verified by the physician, the nurse and the anesthesiologist in the procedure room. Mental Status Examination: alert and oriented. Airway Examination: normal oropharyngeal airway and neck mobility. Respiratory Examination: clear to auscultation. CV Examination: normal. Prophylactic Antibiotics: The patient does not require prophylactic antibiotics. Prior Anticoagulants: The patient has taken no previous anticoagulant or antiplatelet agents. ASA Grade Assessment: II - A patient with mild systemic disease. After reviewing the risks and benefits, the patient was deemed in satisfactory condition to undergo the procedure. The anesthesia plan was to use monitored anesthesia care (MAC). Immediately prior to administration of medications, the patient was re-assessed for adequacy to receive sedatives. The heart rate, respiratory rate, oxygen saturations, blood pressure, adequacy of pulmonary ventilation, and response to care were monitored throughout the procedure. The physical status of the patient was re-assessed after the procedure. The Duodenoscope was introduced through the mouth, and advanced to the duodenum and used to inject contrast into the bile duct. The ERCP was accomplished without difficulty. The patient tolerated the procedure well. Findings: The reel winder film was normal. The esophagus was successfully intubated under direct vision. The scope was advanced to a normal major papilla in the descending duodenum without detailed examination of the pharynx, larynx and associated structures, and upper GI tract. The upper GI tract was grossly normal. A straight Roadrunner wire was passed into the biliary tree. The short-nosed traction sphincterotome was passed over the guidewire and the bile duct was then deeply cannulated. Contrast was injected. The middle third of the main bile duct contained filling defect(s) thought to be a stone. The middle third of the main bile duct, upper third of the main bile duct, left main hepatic duct and right main hepatic duct were diffusely dilated, acquired. The largest diameter was 12 mm. Biliary sphincterotomy was made with a monofilament traction (standard) sphincterotome using ERBE electrocautery. There was no post-sphincterotomy bleeding. Lithotripsy with the mechanical lithotripter was successful for stone fragmentation, but the removal of stone and debris was unsuccessful. The biliary tree was swept with a 12 mm balloon starting at the bifurcation. Sludge was swept from the duct. One 10 Fr by 7 cm plastic stent with a single external flap and a single internal flap was placed into the common bile duct. Bile flowed through the stent. The stent was in good position. Impression: - A filling defect consistent with a stone was seen on the cholangiogram. - The upper third of the main bile duct, middle third of the main bile duct, left main hepatic duct and right main hepatic duct were dilated, acquired. - The examination was suspicious for choledocholithiasis. Partial removal was accomplished with biliary sphincterotomy; a stent was inserted. - A biliary sphincterotomy was performed. - Lithotripsy was successful for stone fragmentation, but the removal of stone and debris was unsuccessful. - The biliary tree was swept and sludge was found. - One plastic stent was placed into the common bile duct. Recommendation: - The patient will be observed post-procedure, until all discharge criteria are met. - Patient has a contact number available for emergencies. The signs and symptoms of potential delayed complications were discussed with the patient. Return to normal activities tomorrow. Written discharge instructions were provided to the patient. - [facility]. - Avoid aspirin and nonsteroidal anti-inflammatory medicines for 3 days. - Refer to a surgeon at appointment to be scheduled. - Repeat ERCP in 3 months to remove stent. - Return to GI clinic in [facility] (address [address], [address], [place] [address]) in 4 -- 6 weeks. Please call GI clinic @ [phone] for apppointment date and time. - Return to primary care physician. Aly Rucker MD Aly Rucker MD 07/01/2019 6:34:01 PM Electronically signed by Aly Rucker MD Number of Addenda: 0 Note Initiated On: 07/01/2019 4:26 PM Estimated Blood Loss: Estimated blood loss was minimal.
[2019-07-01] MEDS: MIRTAZAPINE 15 MG TAB PO SCH (20:45)
[2019-07-01] MEDS: fluvoxaMINE MALEATE 50 MG TAB PO SCH (20:45)
[2019-07-01] MEDS: PRAZOSIN 1 MG CAP PO SCH (20:47)
[2019-07-01] MEDS: traZODone 50 MG TAB PO SCH (20:47)
[2019-07-02] MEDS: LR 1,000 ML IV SCH ×3 (00:16→11:26)
[2019-07-02] MEDS: DOCUSATE SODIUM 100 MG CAP PO SCH ×2 (00:32→08:30)
[2019-07-02] MEDS: PRAZOSIN 1 MG CAP PO SCH (00:32)
[2019-07-02] MEDS: hydrOXYzine 50 MG TAB PO SCH ×3 (00:32→16:00)
[2019-07-02] MEDS: traZODone 50 MG TAB PO SCH (00:32)
[2019-07-02] MEDS: fluvoxaMINE MALEATE 50 MG TAB PO SCH (00:32)
[2019-07-02] MEDS: PIPERACILLIN/TAZOBACTAM SOD 3.375 GM in D5W MINI-BAG PLUS 50 ML IV SCH ×3 (02:51→17:48)
--- NOTE | 2019-07-02 03:59 | REP ---
Clinical: Choledocholithiasis. Technique: Intraoperative fluoroscopic imaging using portable C-arm technique during ERCP examination. Findings: Images demonstrate intrahepatic and extrahepatic biliary ductal dilatation with filling defect in the common bile duct. The gallbladder stone identified on MRCP is not visible on current images. Final images demonstrate the patient to be status post CBD stent placement. Total fluoroscopic time 2 minutes 7 seconds. Impression: ERCP with initial images demonstrating choledocholithiasis and biliary ductal dilatation with final, subsequent satisfactory common bile duct stent placement. Electronically Signed by Delfino Meier MD 07/02/2019 03:50 A
[2019-07-02 05:56] LABS: HEMATOCRIT 34.9 % (36.0-47.0); MEAN CORPUSCULAR HEMOGLOBIN 29.2 pg (27.0-33.0); MEAN CORPUSCULAR HGB CONC 34.4 g/dl (32.0-36.5); MEAN CORPUSCULAR VOLUME 84.9 fl (80.0-96.0); PLATELET COUNT, AUTOMATED 330 10^3/uL (150-450); RED BLOOD COUNT 4.11 10^6/uL (4.00-5.40); WHITE BLOOD COUNT 7.6 10^3/uL (4.0-10.0)
[2019-07-02 06:12] VITALS: BP 124/68
[2019-07-02 06:34] LABS: ALBUMIN 2.9 GM/DL (3.2-5.2); ALT/SGPT 116 U/L (12-78); BILIRUBIN,TOTAL 1.5 MG/DL (0.2-1.0); BLOOD UREA NITROGEN 5 MG/DL (7-18); CALCIUM LEVEL 8.1 MG/DL (8.5-10.1); CARBON DIOXIDE LEVEL 26 MEQ/L (21-32); CHLORIDE LEVEL 104 MEQ/L (98-107); CREATININE FOR GFR 0.71 MG/DL (0.55-1.30); GLUCOSE, FASTING 110 MG/DL (70-100); POTASSIUM SERUM 3.6 MEQ/L (3.5-5.1); SODIUM LEVEL 136 MEQ/L (136-145); TOTAL PROTEIN 7.3 GM/DL (6.4-8.2)
--- NOTE | 2019-07-02 11:45 | IPNPDOC ---
Subjective Date Seen The patient was seen on 07/02/19. Subjective Chief Complaint/HPI Patient seen and examined at bedside this morning. Patient had ERCP done yesterday she is not feeling any ill effects after the procedure. Reports minimal abdominal pain and denies any nausea, vomiting, chest pain, fevers, chills. Patient was told by his surgeon this morning that she will be going to the OR at approximately 6 PM. Patient to remain nothing by mouth until bedtime in preparation for surgery. Patient has no questions at this time. Other systems 10 point review systems was negative except for what is stated above in the subjective Objective Physical Examination General Exam: Positive: Alert, Cooperative, No Acute Distress Eye Exam: Positive: PERRLA, Conjunctiva & lids normal, EOMI; Negative: Sclera icteric ENT Exam: Positive: Atraumatic, Mucous membr. moist/pink, Other ENT (jaundice noted under the tongue) Chest Exam: Positive: Clear to auscultation, Normal air movement; Negative: Rales, Rhonchi, Wheezing Heart Exam: Positive: Rate Normal, Regular Rhythm, Normal S1, Normal S2; Negative: Murmurs Abdomen Exam: Positive: Normal bowel sounds, Soft, Other (De Santiago sign negative this morning); Negative: Tenderness, Hepatospenomegaly, Mass Extremity Exam: Negative: Clubbing, Cyanosis, Edema Skin Exam: Positive: Nl turgor and temperature; Negative: Rash, Breakdown Neuro Exam: Positive: Normal Gait, Normal Speech, Strength at 5/5 X4 ext, Normal Tone, Sensation Intact, Cranial Nerves 3-12 NL Psych Exam: Positive: Mental status NL, Mood NL Assessment /Plan Assessment 18-year-old female presents to the emergency room for choledocholithiasis. She underwent ERCP with stent placement yesterday and has suffered no elevated. As per surgical team, patient to go to the OR today at 7 PM for cholecystectomy. Patient maintained nothing by mouth at this time. Labwork reveals bilirubin trending down which was to be expected after stent placement and intervention. GI recommendations noted and appreciated. Plan/VTE VTE Prophylaxis Ordered?: Yes Plan IVF: Initiate Diet: Make NPO Activity: Continue Current Medications: Decrease pain Meds, Taper Antibiotics Disposition Choledocholithiasis s/p ERCP and stent placement Patient underwent ERCP yesterday and had a stent placed. She is now scheduled for cholecystectomy by surgical team at this time. Bilirubin levels have began to normalize which is expected after procedure. Patient has remained afebrile with no white count and therefore antibiotics were discontinued today. - Nothing by mouth for surgery tonight - Morphine for pain control when necessary - Follow-up GI recommendations - patient will require follow-up in 4-6 weeks at GI clinic - DC all antibiotics at this time - Trend LFTs and bilirubin - improving PTSD Established issue. - Continue prazosin, trazodone, mirtazapine as per home dose Chronic back pain - Continue with Robaxin as per home dose Anticipate discharge in the next 24-48 hours depending on how well her surgery goes. VS, I&O, 24H, Fishbone Vital Signs/I&O Vital Signs Date Time Temp Pulse Resp B/P (MAP) Pulse Ox O2 Delivery O2 Flow Rate FiO2 07/02/19 06:12 98.4 73 18 124/68 (86) 97 Room Air 07/01/19 18:02 2 I&O- Last 24 Hours up to 6 AM 07/02/19 06:00 Intake Total 4855 ml Output Total 0 ml Balance 4855 ml Laboratory Data 24H LABS Laboratory Tests 2 07/02/19 05:14: Nucleated Red Blood Cells % (auto) 0.0, Anion Gap 6L, Calcium Level 8.1L, Total Bilirubin 1.5#H, Aspartate Amino Transf (AST/SGOT) 84H, Alanine Aminotransferase (ALT/SGPT) 116H, Alkaline Phosphatase 143H, Total Protein 7.3, Albumin 2.9L, Albumin/Globulin Ratio 0.66L CBC/BMP Laboratory Tests 07/02/19 05:14 CRISTIN ARCE MD Jul 02, 2019 11:45
--- NOTE | 2019-07-02 13:42 | CR ---
DATE OF CONSULTATION: 07/01/2019 The patient presents to the hospital with new onset abdominal pain in the epigastric area. She was originally seen 24 hours prior to admission with evidence of possible cholecystitis, was discharged home and then returned 1 day later with evidence of elevated liver function tests (LFTs) consistent with choledocholithiasis. She has been evaluated by GI and had an magnetic resonance cholangiopancreatography (MRCP). The MRCP did show choledocholithiasis and is planned for endoscopic retrograde cholangiopancreatography (ERCP) later on today. She has had some nausea with vomiting, pain in the epigastric area radiating to her back, although no evidence of gallstone pancreatitis. Past medical history is significant for history of posttraumatic stress disorder (PTSD), history of chronic back pain, history of gallstones. Medications include: - fluvoxamine maleate - hydroxyzine pamoate - mirtazapine - control - prazosin - trazodone Physical exam reveals a 18-year-old female who looks stated age. HEENT is unremarkable, although she does have some mild scleral icterus. Neck supple without adenopathy. Lungs are clear to auscultation without crackles, wheezes or rhonchi. Heart is regular. Abdomen is soft, nondistended, nontender. No guarding. No rebound. No peritoneal signs are appreciated. IMPRESSION AND PLAN: The patient has choledocholithiasis and has ERCP planned later on today. We will see how she does with this. If she tolerates this well, we will plan on laparoscopic cholecystectomy tomorrow, and depending on the operating room (OR) schedule will determine timing of this and how the patient is doing. ADDENDUM: The patient was seen after the ERCP. Seems to be feeling better after the ERCP and has had decreased pain. Feels a lot better and would like to proceed with operative intervention. However, I looked at the OR schedule and it looks like it will be add-on for the end of the day, about 6 or 7 in the afternoon/evening. She understands that then it will be Dr. Painting who is available at that time to proceed with the operative intervention. She understands that unless there is some emergent operative intervention that this will be an add-on case for tomorrow. She understands the risks as well as benefits that I have discussed with her at length, the operative intervention and would like to proceed with this as scheduled.
[2019-07-02 14:00] VITALS: BP 133/80
[2019-07-02] MEDS ORDERED: BUPIVACAINE HCL 0.25% 30ML VIAL As Ordered ONE (14:31)
[2019-07-02] MEDS ORDERED: LIDOCAINE 1% SDV 30ML VIAL As Ordered ONE (14:31)
--- NOTE | 2019-07-02 20:07 | IPNPDOC ---
Text Note Date of Service The patient was seen on 07/02/19. NOTE I met the patient in the preop holding area and introduced myself to takeover care for her. She is to undergo laparoscopic cholecystectomy. She had an ERCP and stone extraction done yesterday and appears much improved. Denies any severe abdominal discomfort at this time. Abdominal exam shows no prior surgical scars, nondistended, minimal tenderness at the epigastric area only on deep palpation I explained the details of the procedure, risks and benefits including risks for bleeding, bile duct injury, bile leakage. Patient is willing to proceed. VS,Fishbone, I+O VS, Fishbone, I+O Laboratory Tests 07/02/19 05:14 Vital Signs Date Time Temp Pulse Resp B/P (MAP) Pulse Ox O2 Delivery O2 Flow Rate FiO2 07/02/19 14:00 98.2 75 16 133/80 (97) 98 Room Air 07/01/19 18:02 2 I&O- Last 24 Hours up to 6 AM 07/02/19 06:00 Intake Total 4855 ml Output Total 0 ml Balance 4855 ml KANDI POLO MD Jul 02, 2019 20:07
[2019-07-02] MEDS ORDERED: MIDAZOLAM INJ 2MG/2ML VIAL (J2250 PER 1MG) As Ordered ONE (20:09)
[2019-07-02] MEDS ORDERED: LIDOCAINE 2% 100MG/5ML SDV (FOR ANES.) As Ordered ONE (20:09)
[2019-07-02] MEDS ORDERED: ROCURONIUM BROMIDE 50 MG/5 ML VIAL As Ordered ONE (20:09)
[2019-07-02] MEDS ORDERED: fentaNYL 100 MCG/2 ML INJECTION (J3010) As Ordered ONE ×3 (20:09→22:33)
[2019-07-02] MEDS ORDERED: propofoL 200 MG/20 ML VIAL As Ordered ONE (20:09)
[2019-07-02] MEDS ORDERED: dexameTHASONE 4 MG/ML 1ML VIAL (J1100 PER 1MG) As Ordered ONE (20:40)
[2019-07-02] MEDS ORDERED: METOCLOPRAMIDE INJ 10MG/2ML VIAL (J2765 PER 1) As Ordered ONE (20:40)
[2019-07-02] MEDS ORDERED: ACETAMINOPHEN 1000MG 100ML IV BTL (OFIRMEV) (J0131 PER 10MG) As Ordered ONE (20:45)
[2019-07-02] MEDS ORDERED: ONDANSETRON 4MG/2ML VIAL As Ordered ONE (20:45)
[2019-07-02] MEDS ORDERED: KETOROLAC 60 MG/2 ML VIAL As Ordered ONE (20:45)
[2019-07-02] MEDS ORDERED: SUGAMMADEX SODIUM 500 MG/5 ML VIAL (BRIDION) As Ordered ONE (20:51)
[2019-07-02] MEDS ORDERED: PERCOCET 5MG/325MG TAB PO PRN (22:15)
[2019-07-02] MEDS ORDERED: KETOROLAC 30 MG/ML 1ML VIAL IV PRN (22:15)
[2019-07-02] MEDS ORDERED: oxyCODONE 5MG TAB PO PRN (22:30)
[2019-07-02] MEDS ORDERED: LR 1,000 ML IV SCH (22:30)
[2019-07-02] MEDS ORDERED: HYDROMORPHONE HCL 0.5 MG/ 0.5 ML SYRINGE (J1170 PER 1) IV PRN (22:30)
[2019-07-02] MEDS ORDERED: ONDANSETRON 4MG/2ML VIAL IV PRN (22:30)
[2019-07-02] MEDS: fentaNYL 100 MCG/2 ML INJECTION (J3010) IV PRN ×4 (22:40→23:05)
[2019-07-02] MEDS ORDERED: oxyCODONE 5MG TAB As Ordered ONE (22:50)
[2019-07-02 23:30] VITALS: BP 140/96
[2019-07-03] VITALS: BP 142/96
[2019-07-03] MEDS: LR 1,000 ML IV SCH (00:42)
[2019-07-03] MEDS: MIRTAZAPINE 15 MG TAB PO SCH (00:42)
[2019-07-03 01:30] VITALS: BP 148/94
[2019-07-03] MEDS: PIPERACILLIN/TAZOBACTAM SOD 3.375 GM in D5W MINI-BAG PLUS 50 ML IV SCH (02:57)
[2019-07-03 03:30] VITALS: BP 140/83
[2019-07-03 05:30] VITALS: BP 146/88
[2019-07-03 06:53] LABS: HEMATOCRIT 35.4 % (36.0-47.0); HEMOGLOBIN 12.6 g/dl (12.0-15.5); MEAN CORPUSCULAR HEMOGLOBIN 30.3 pg (27.0-33.0); MEAN CORPUSCULAR HGB CONC 35.6 g/dl (32.0-36.5); MEAN CORPUSCULAR VOLUME 85.1 fl (80.0-96.0); PLATELET COUNT, AUTOMATED 343 10^3/uL (150-450); RED BLOOD COUNT 4.16 10^6/uL (4.00-5.40); WHITE BLOOD COUNT 9.5 10^3/uL (4.0-10.0)
[2019-07-03 07:16] LABS: ALBUMIN 3.1 GM/DL (3.2-5.2); ALT/SGPT 190 U/L (12-78); BLOOD UREA NITROGEN 5 MG/DL (7-18); CALCIUM LEVEL 8.4 MG/DL (8.5-10.1); CARBON DIOXIDE LEVEL 27 MEQ/L (21-32); CHLORIDE LEVEL 103 MEQ/L (98-107); CREATININE FOR GFR 0.79 MG/DL (0.55-1.30); GLUCOSE, FASTING 95 MG/DL (70-100); POTASSIUM SERUM 3.6 MEQ/L (3.5-5.1); SODIUM LEVEL 139 MEQ/L (136-145); TOTAL PROTEIN 7.2 GM/DL (6.4-8.2)
--- NOTE | 2019-07-03 08:40 | ROOPDOC ---
[facility] Report Of Operation Report of Operation DATE OF PROCEDURE: 07/02/19 PREPROCEDURE DIAGNOSES: cholelithiasis, choledocholithiasis. POSTPROCEDURE DIAGNOSES: Cholelithiasis, chronic cholecystitis. PROCEDURE: Laparoscopic Cholecystectomy. SURGEON: Colin Painting MD [employer] WORKER: ANESTHESIA: General Anesthesia. ESTIMATED BLOOD LOSS: Approximately 20 mL. COMPLICATIONS: none. REMARKS: Healthy 18 F who was admitted for a 3 day history of abdominal pain, rising LFTs found to have evidence for gallstones and CBD stones, had ERCP and sphincterotomy done yesterday and is doing well from it, now brought back to OR for Laparoscopic Cholecystectomy. PROCEDURE NOTE: distended gallbladder, 2 floating 1 cm stones, very thick wall, fat-laden, thick and distended cystic duct, no palpable stones in them.. DESCRIPTION OF PROCEDURE: . COLIN PAINTING MD Jul 03, 2019 08:40
[2019-07-03] MEDS ORDERED: PERCOCET PO ×2 (09:23→09:53)
--- NOTE | 2019-07-03 09:31 | DS.PDOC ---
Discharge Summary General Date of Admission Jun 30, 2019 at 17:13 Date of Discharge 07/03/19 Specialist/Consultants Involve: KANDI POLO MD Discharge Summary PROCEDURES PERFORMED DURING STAY: ERCP, laparoscopic cholecystectomy. ADMITTING DIAGNOSES: 1. Choledocholithiasis. DISCHARGE DIAGNOSES: 1. Choledocholithiasis. COMPLICATIONS/CHIEF COMPLAINT: Choledocholithiasis With Acute Cholecystitis. HISTORY OF PRESENT ILLNESS: 18-year-old female with past medical history of PT SD, chronic back pain presents to the ER for persistent abdominal pain for the past 3 days. She states the pain first began on Friday. The pain was associated with nausea and multiple episodes of vomiting. She also noted that her urine became dark and was concerning. When she came to the ER on Friday, they initially thought she just had intractable back pain. She is given some pain medications and discharged at that time. The pain however came back, the following day and she came back to the ER for further evaluation. At that time there noted that she had gallstones but patient was sent home. Patient came back today as pain continued to get worse. Upon evaluation in the ER, patient had increasing bilirubin levels as well as increasing LFTs. Ultrasound shows common bile duct dilation. Patient to be admitted to hospital service for further management of choledocholithiasis. Patient denies any recent fevers, chills, shortness of breath, chest pain. She has had one episode of vomiting today and still feels nauseous. Pain radiates to her back described as colicky in nature.. HOSPITAL COURSE: Patient was admitted to the medical floor for further evaluation and management. Patient underwent MRCP which revealed gallstones the common bile duct. ERCP was then performed by GI doctor and stone was successfully removed. A sphincterotomy was also performed as well as a stent was placed as per the GI team. Given her likely reoccurrence of gallstones, surgical consult was called for possible cholecystectomy. Surgical team agreed after evaluation the patient would require a cholecystectomy and patient underwent surgery on July 01. Surgery was completed without any complications and patient is now medically still for discharge at this time. DISCHARGE MEDICATIONS: Please see below. ALLERGIES: Please see below. PHYSICAL EXAMINATION ON DISCHARGE: VITAL SIGNS: Please see below. GENERAL: 18-year-old female who appears stated age. No acute distress. Resting comfortably in bed HEENT: Normocephalic, atraumatic. Mucous members are moist. NECK: No JVD or thyromegaly CARDIOVASCULAR EXAMINATION: Rate and regular rhythm. No murmurs rubs or gallops RESPIRATORY EXAMINATION: Lungs are clear to auscultation bilaterally ABDOMINAL EXAMINATION: Soft but tender to palpation. Multiple surgical sites are seen but dressings appear to be clean, dry, intact. Hypoactive bowel sounds appreciated EXTREMITIES: No gross deformities SKIN: No rashes or lesions. Jaundice improved NEUROLOGICAL EXAMINATION: Cranial nerves II through XII are intact PSYCHIATRIC EXAMINATION: Stable LABORATORY DATA: Please see below. IMAGING: MRCP - 1. Known cholelithiasis. 2. Gallbladder wall thickening and some evidence of early pericholecystic edema. 3. Persistent intraductal echogenic focus within the common bile duct in a persistently dilated common bile duct, as described above. 4. Positive sonographic De Santiago sign. 5. Other findings as described above. PROGNOSIS: Excellent ACTIVITY: As tolerated. DIET: advance as tolerated DISCHARGE PLAN: Medically stable for discharge home DISCHARGE INSTRUCTIONS: 1. Please follow-up with the surgeon on Friday or Friday. His office will need to be called for an appointment. 2. Please follow up with the GI doctor as instructed. He will need to see him in approximately 4-6 weeks. 3. Take pain medications as prescribed. ITEMS TO FOLLOWUP ON ON OUTPATIENT: 1. Pain control and general wellness. DISCHARGE CONDITION: stable for discharge. TIME SPENT ON DISCHARGE: 30 minutes Vital Signs/I&Os Vital Signs Date Time Temp Pulse Resp B/P (MAP) Pulse Ox O2 Delivery O2 Flow Rate FiO2 07/03/19 07:20 18 07/03/19 05:30 98.0 57 146/88 (107) 95 Room Air 07/02/19 22:40 2 I&O- Last 24 Hours up to 6 AM 07/03/19 06:00 Intake Total 2100 ml Output Total 820 ml Balance 1280 ml Laboratory Data Labs 24H Laboratory Tests 2 07/03/19 06:36: Nucleated Red Blood Cells % (auto) 0.0, Anion Gap 9, Calcium Level 8.4L, Total Bilirubin 1.0, Aspartate Amino Transf (AST/SGOT) 125H, Alanine Aminotransferase (ALT/SGPT) 190H, Alkaline Phosphatase 126H, Total Protein 7.2, Albumin 3.1L, Albumin/Globulin Ratio 0.76L CBC/BMP Laboratory Tests 07/03/19 06:36 Discharge Medications Scheduled Fluvoxamine Maleate (Fluvoxamine Maleate) 50 Mg Tablet, 25 MG PO QHS, (Reported) Hydroxyzine Pamoate (Hydroxyzine Pamoate) 50 Mg Capsule, 50 MG PO TID, (Reported) Mirtazapine (Mirtazapine) 15 Mg Tab.rapdis, 15 MG PO QHS, (Reported) Norethindrone-E.estradiol-Iron (Loestrin Fe 1-20 Tablet) 1 Each Tablet, 1 TAB PO QHS, (Reported) Prazosin HCl (Prazosin HCl) 5 Mg Capsule, 5 MG PO QHS, (Reported) Trazodone HCl (Trazodone HCl) 50 Mg Tablet, 50 MG PO QHS, (Reported) Scheduled PRN Acetaminophen (Tylenol) 325 Mg Tablet, 650 MG PO Q6H PRN for PAIN, (Reported) Methocarbamol (Methocarbamol) 500 Mg Tablet, 500 MG PO TID PRN for SPASMS, (Reported) Oxycodone/Acetaminophen (Oxycodone-Acetaminophen 5-325) 1 Each Tablet, 1 TAB PO Q4HP PRN for MILD/MODERATE PAIN (PS 1-7) Take 1 tablet every 4 hrs as needed for pain. Allergies Coded Allergies: No Known Allergies (Unverified , 02/11/19) CRISTIN ARCE MD Jul 03, 2019 09:31
[2019-07-03] MEDS: hydrOXYzine 50 MG TAB PO SCH (09:45)
[2019-07-03] MEDS: DOCUSATE SODIUM 100 MG CAP PO SCH (09:45)
== END 2019-07-03 11:11 | disposition home or self-care (01) | DRG 446 ==
LOC: M ED 14:59 → M ED INP 17:13 → ENRESERV 19:29 → M MSPAV 20:05
PROVIDERS: ADMIT Internal Medicine; ATTEND Internal Medicine
PROC: [UNRECOGNIZED PROCEDURE] (principal; 2019-07-01 16:30)
DX: K80.62 Calculus of gallbladder and bile duct with acute cholecystitis without obstruction (principal); F43.10 Post-traumatic stress disorder, unspecified; Z79.899 Other long term (current) drug therapy; M54.5 Low back pain

== ENCOUNTER 2019-08-10 09:32 | Emergency (ER) | payer OTHER ==
[~2019-08-10] VITALS: Ht 147.3 cm; Wt 83.4 kg
[~2019-08-10 09:32] MED LIST changes: +ACET-907 PO; +FLUV50TA PO; +HYDR50CA2 PO; +LOES1TAB7 PO; +METH-1164 PO; -METH1TAB40 PO; +MIRT1TAB15 PO; +PERCOCET PO; +PRAZ5CAP22 PO
[2019-08-10 10:28] LABS: BASO # 0.1 10^3/uL (0.0-0.2); BASO % 0.6 % (0.0-1.0); EOS # 0.2 10^3/uL (0.0-0.5); EOS % 1.9 % (0.0-3.0); HEMATOCRIT 35.8 % (36.0-47.0); HEMOGLOBIN 12.5 g/dl (12.0-15.5); LYMPH # 1.9 10^3/uL (1.5-5.0); LYMPH % 23.6 % (24.0-44.0); MEAN CORPUSCULAR HEMOGLOBIN 29.2 pg (27.0-33.0); MEAN CORPUSCULAR HGB CONC 34.9 g/dl (32.0-36.5); MEAN CORPUSCULAR VOLUME 83.6 fl (80.0-96.0); MONO # 0.5 10^3/uL (0.0-0.8); MONO % 6.5 % (0.0-5.0); NEUTROPHILS # 5.3 10^3/uL (1.5-8.5); NEUTROPHILS % 66.9 % (36.0-66.0); PLATELET COUNT, AUTOMATED 355 10^3/uL (150-450); RED BLOOD COUNT 4.28 10^6/uL (4.00-5.40)
[2019-08-10] MEDS ORDERED: ONDANSETRON 4MG/2ML VIAL IV ONE (10:30)
[2019-08-10] MEDS ORDERED: NS 1,000 ML IV ONE (10:30)
[2019-08-10 11:53] LABS: HCG, SERUM QUALITATIVE NEGATIVE (NEGATIVE)
[2019-08-10 12:03] LABS: ALBUMIN 3.7 GM/DL (3.2-5.2); ALT/SGPT 33 U/L (12-78); BILIRUBIN,DIRECT 0.1 MG/DL (0.0-0.2); BILIRUBIN,TOTAL 0.3 MG/DL (0.2-1.0); LIPASE 76 U/L (73-393); TOTAL PROTEIN 7.9 GM/DL (6.4-8.2)
[2019-08-10] MEDS ORDERED: ONDA4TAB6 PO (12:22)
[2019-08-10 13:05] VITALS: BP 120/61
[2019-11-19] MEDS ORDERED: HYDR50CA2 PO (08:22)
== END 2019-08-10 13:07 | disposition home or self-care (01) ==
LOC: M ED 09:32
DX: R10.9 Unspecified abdominal pain (principal); R11.2 Nausea with vomiting, unspecified
CPT/HCPCS: 36415; 80047; 80076; 81001; 83690; 84703; 85025; 87086; 96361; 96374; 99284; J2405

== ENCOUNTER → 2019-10-10 02:28 | Emergency (ER) | payer OTHER ==
[~2019-10-10 02:28] MED LIST changes: -METH-1164 PO; +METH1TAB40 PO; +ONDA4TAB6 PO
== END | disposition left against medical advice (07) ==
LOC: M ED 02:28
DX: Z53.21 Procedure and treatment not carried out due to patient leaving prior to being seen by health care provider (principal)

== ENCOUNTER 2019-10-11 09:49 | Emergency (ER) | payer OTHER ==
[~2019-10-11 09:49] MED LIST changes: +methylPREDNISolone 125MG 2ML VIAL As Ordered ONE; +methylPREDNISolone 125MG 2ML VIAL ONE
[2019-11-19] MEDS ORDERED: HYDR50CA2 PO (08:22)
== END 2019-10-11 10:02 | disposition home or self-care (01) ==
LOC: M ED 09:49
DX: R21 Rash and other nonspecific skin eruption (principal); Z79.899 Other long term (current) drug therapy
CPT/HCPCS: 96372; 99283; J2930

== ENCOUNTER 2019-11-23 13:05 | Day surgery (SDC) | payer OTHER ==
[~2019-11-23] VITALS: Ht 147.3 cm; Wt 83.8 kg
[~2019-11-23 13:05] MED LIST changes: +LIDOCAINE 1% MDV 20ML VIAL SQ PRN; +LR 1,000 ML IV ONE; +NS 1,000 ML IV ONE; -methylPREDNISolone 125MG 2ML VIAL As Ordered ONE; -methylPREDNISolone 125MG 2ML VIAL ONE
[2019-11-23] MEDS ORDERED: ROCURONIUM BROMIDE 50 MG/5 ML VIAL As Ordered ONE (14:22)
[2019-11-23] MEDS ORDERED: LIDOCAINE 2% 100MG/5ML SDV (FOR ANES.) As Ordered ONE (14:22)
[2019-11-23] MEDS ORDERED: propofoL 200 MG/20 ML VIAL As Ordered ONE (14:22)
[2019-11-23] MEDS ORDERED: MIDAZOLAM INJ 2MG/2ML VIAL (J2250 PER 1MG) As Ordered ONE (15:05)
[2019-11-23] MEDS ORDERED: fentaNYL 100 MCG/2 ML INJECTION (J3010) As Ordered ONE ×2 (15:05→15:55)
[2019-11-23] MEDS ORDERED: ISOVUE-300 61% 50ML VIAL As Ordered ONE (15:07)
[2019-11-23] MEDS ORDERED: ONDANSETRON 4MG/2ML VIAL As Ordered ONE (15:24)
[2019-11-23] MEDS ORDERED: ESMOLOL INJ 100MG/10ML VIAL As Ordered ONE (15:26)
[2019-11-23] MEDS ORDERED: SUGAMMADEX SODIUM 500 MG/5 ML VIAL (BRIDION) As Ordered ONE (15:37)
[2019-11-23] MEDS ORDERED: PHENYLephrine HCL 500 MCG/5 ML (100MCG/ML) SYRINGE (J2370) As Ordered ONE (16:02)
--- NOTE | 2019-11-23 16:40 | ROOR ---
Patient Name: Le Garcia Procedure Date: 11/23/2019 3:17 PM Date of : 2000 Age: 19 Room: Main OR Gender: Female Note Status: Finalized Procedure: ERCP Indications: Bile duct stone(s), Biliary stent removal Providers: Aly Rucker MD Referring MD: Colin Painting MD Requesting Provider: Medicines: Monitored Anesthesia Care Complications: No immediate complications. Procedure: Pre-Anesthesia Assessment: - Prior to the procedure, a History and Physical was performed, and patient medications and allergies were reviewed. The patient is competent. The risks and benefits of the procedure and the sedation options and risks were discussed with the patient. All questions were answered and informed consent was obtained. Patient identification and proposed procedure were verified by the physician, the nurse and the anesthesiologist in the procedure room. Mental Status Examination: alert and oriented. Airway Examination: normal oropharyngeal airway and neck mobility. Respiratory Examination: clear to auscultation. CV Examination: normal. Prophylactic Antibiotics: The patient does not require prophylactic antibiotics. Prior Anticoagulants: The patient has taken no previous anticoagulant or antiplatelet agents. ASA Grade Assessment: II - A patient with mild systemic disease. After reviewing the risks and benefits, the patient was deemed in satisfactory condition to undergo the procedure. The anesthesia plan was to use monitored anesthesia care (MAC). Immediately prior to administration of medications, the patient was re-assessed for adequacy to receive sedatives. The heart rate, respiratory rate, oxygen saturations, blood pressure, adequacy of pulmonary ventilation, and response to care were monitored throughout the procedure. The physical status of the patient was re-assessed after the procedure. The Duodenoscope was introduced through the mouth, and advanced to the duodenum and used to inject contrast into the bile duct. The ERCP was accomplished without difficulty. The patient tolerated the procedure well. Findings: A biliary stent was visible on the felt washing machine tender film. A felt washing machine tender film of the abdomen was obtained. Surgical clips, consistent with a previous cholecystectomy, were seen in the area of the right upper quadrant of the abdomen. The esophagus was successfully intubated under direct vision without detailed examination of the pharynx, larynx, and associated structures, and upper GI tract. The upper GI tract was grossly normal. One plastic stent originating in the biliary tree was emerging from the major papilla. The stent was visibly patent. A biliary sphincterotomy had been performed. The sphincterotomy appeared open. One stent was removed from the biliary tree using a snare. A 0.035 inch x 260 cm straight Hydra Jagwire was passed into the biliary tree. The short-nosed traction sphincterotome was passed over the guidewire and the bile duct was then deeply cannulated. Contrast was injected. I personally interpreted the bile duct images. There was appropriate flow of contrast through the ducts. Image quality was adequate. Contrast extended to the entire biliary tree. The middle third of the main bile duct contained filling defect(s) thought to be a stone. The middle third of the main bile duct and upper third of the main bile duct were mildly dilated and diffusely dilated, with a stone causing an obstruction. The largest diameter was 9 mm. Careful extension to prior biliary sphincterotomy was made with a monofilament traction (standard) sphincterotome using ERBE electrocautery. There was no post-sphincterotomy bleeding. Lithotripsy with the mechanical lithotripter was successful for stone fragmentation and removal. The biliary tree was swept with a 9 mm balloon starting at the bifurcation. Sludge was swept from the duct. All stones were removed. Occlusion cholangiogram at the end of the procedure did not show any residual filling defects. Pancreatic duct was neither cannulated nor opacified. Impression: - One visibly patent stent from the biliary tree was seen in the major papilla. - Prior biliary sphincterotomy appeared open. - A filling defect consistent with a stone was seen on the cholangiogram. - The upper third of the main bile duct and middle third of the main bile duct were mildly dilated, with a stone causing an obstruction. - Choledocholithiasis was found. Complete removal was accomplished by biliary sphincterotomy and balloon extraction. - One stent was removed from the biliary tree. - A biliary sphincterotomy was performed. - Lithotripsy was successful for stone fragmentation and removal. - The biliary tree was swept. Recommendation: - The patient will be observed post-procedure, until all discharge criteria are met. - Patient has a contact number available for emergencies. The signs and symptoms of potential delayed complications were discussed with the patient. Return to normal activities tomorrow. Written discharge instructions were provided to the patient. - Avoid aspirin and nonsteroidal anti-inflammatory medicines for 5 days. - Clear liquid diet today, then advance as tolerated to high fiber diet and low fat diet. - Telephone GI clinic if symptomatic. - Return to primary care physician. Aly Rucker MD Aly Rucker MD 11/23/2019 4:39:54 PM Electronically signed by Aly Rucker MD Number of Addenda: 0 Note Initiated On: 11/23/2019 3:17 PM Estimated Blood Loss: Estimated blood loss: none.
[2019-11-23] MEDS ORDERED: LR 1,000 ML IV SCH (17:00)
[2019-11-23] MEDS ORDERED: fentaNYL 100 MCG/2 ML INJECTION (J3010) IV PRN (17:00)
[2019-11-23] MEDS ORDERED: METOCLOPRAMIDE INJ 10MG/2ML VIAL (J2765 PER 1) IV PRN (17:00)
[2019-11-23] MEDS ORDERED: ONDANSETRON 4MG/2ML VIAL IV PRN (17:00)
[2019-11-23] MEDS ORDERED: ACETAMINOPHEN 500 MG TAB As Ordered ONE (17:38)
[2019-11-23 18:10] VITALS: BP 137/74
[2019-11-23] MEDS ORDERED: ACETAMINOPHEN *IV* 1,000 MG IV ONE ×2 (18:15)
[2019-11-23] MEDS ORDERED: ACETAMINOPHEN 500 MG TAB PO ONE (18:30)
--- NOTE | 2019-12-09 07:02 | REP ---
ERCP: 125 VIEWS HISTORY: Common bile duct stone. One minute 38 seconds of fluoroscopy time is reported. FINDINGS: A sequence of 125 [id number] fluoroscopically obtained spot radiographs of the right upper quadrant document endoscopic cannulation, contrast injection, balloon catheter manipulation, basket catheter manipulation of the common bile duct. MTDD
== END 2019-11-23 18:25 | disposition home or self-care (01) ==
LOC: M SDC 13:05
PROVIDERS: ATTEND Internal Medicine Gastroenterology
DX: K80.51 Calculus of bile duct without cholangitis or cholecystitis with obstruction (principal); R93.2 Abnormal findings on diagnostic imaging of liver and biliary tract; Z46.59 Encounter for fitting and adjustment of other gastrointestinal appliance and device; F41.9 Anxiety disorder, unspecified; F32.9 Major depressive disorder, single episode, unspecified; Z79.899 Other long term (current) drug therapy
CPT/HCPCS: 43262; 43265; 43275; 74330; 81025; J2250; J2370; J2405; J2765; J3010; Q9967

== ENCOUNTER → 2019-11-25 | Outpatient (CLI) | payer OTHER ==
[~2019-11-25] MED LIST changes: -LIDOCAINE 1% MDV 20ML VIAL SQ PRN; -LR 1,000 ML IV ONE; -NS 1,000 ML IV ONE
[2019-11-25 17:39] LABS: BASO % 0.5 % (0.0-1.0); EOS # 0.1 10^3/uL (0.0-0.5); EOS % 1.8 % (0.0-3.0); HEMATOCRIT 36.4 % (36.0-47.0); HEMOGLOBIN 12.4 g/dl (12.0-15.5); LYMPH # 1.7 10^3/uL (1.5-5.0); LYMPH % 22.4 % (24.0-44.0); MEAN CORPUSCULAR HEMOGLOBIN 29.2 pg (27.0-33.0); MEAN CORPUSCULAR HGB CONC 34.1 g/dl (32.0-36.5); MEAN CORPUSCULAR VOLUME 85.8 fl (80.0-96.0); MONO # 0.4 10^3/uL (0.0-0.8); MONO % 5.1 % (0.0-5.0); NEUTROPHILS # 5.3 10^3/uL (1.5-8.5); NEUTROPHILS % 69.8 % (36.0-66.0); PLATELET COUNT, AUTOMATED 348 10^3/uL (150-450); RED BLOOD COUNT 4.24 10^6/uL (4.00-5.40); WHITE BLOOD COUNT 7.6 10^3/uL (4.0-10.0)
[2019-11-25 17:47] LABS: INR 0.91; PROTHROMBIN TIME 12.4 SECONDS (12.5-14.3)
[2019-11-25 17:48] LABS: PARTIAL THROMBOPLASTIN TIME 28.5 SECONDS (24.2-38.5)
[2019-11-25 18:14] LABS: ALBUMIN 3.8 GM/DL (3.2-5.2); ALT/SGPT 43 U/L (12-78); BILIRUBIN,DIRECT < 0.1 MG/DL (0.0-0.2); BILIRUBIN,TOTAL 0.3 MG/DL (0.2-1.0); BLOOD UREA NITROGEN 9 MG/DL (7-18); CALCIUM LEVEL 9.6 MG/DL (8.5-10.1); CARBON DIOXIDE LEVEL 29 MEQ/L (21-32); CHLORIDE LEVEL 106 MEQ/L (98-107); CREATININE FOR GFR 0.88 MG/DL (0.55-1.30); GLOMERULAR FILTRATION RATE > 60.0 (>60); GLUCOSE, FASTING 88 MG/DL (70-100); POTASSIUM SERUM 4.1 MEQ/L (3.5-5.1); SODIUM LEVEL 137 MEQ/L (136-145)
== END ==
LOC: M LAB 16:46
PROVIDERS: ATTEND Internal Medicine Gastroenterology
DX: K80.61 Calculus of gallbladder and bile duct with cholecystitis, unspecified, with obstruction (principal)

== ENCOUNTER 2020-05-18 14:56 | Emergency (ER) | payer OTHER ==
[~2020-05-18] VITALS: Ht 147.3 cm; Wt 85.9 kg
[~2020-05-18 14:56] MED LIST changes: +METH-1164 PO; -METH1TAB40 PO
[2020-05-18] MEDS ORDERED: ACETAMINOPHEN 500 MG TAB PO ONE (17:00)
[2020-05-18] MEDS ORDERED: NS 1,000 ML IV ONE (17:00)
[2020-05-18] MEDS ORDERED: METOCLOPRAMIDE INJ 10MG/2ML VIAL (J2765 PER 1) IV ONE (17:00)
[2020-05-18] MEDS ORDERED: diphenhydrAMINE 50MG/ML VIAL (J1200) IV ONE (17:00)
[2020-05-18 17:40] LABS: BASO # 0.1 10^3/uL (0.0-0.2); BASO % 0.7 % (0.0-1.0); EOS # 0.2 10^3/uL (0.0-0.5); EOS % 1.9 % (0.0-3.0); HEMOGLOBIN 13.5 g/dl (12.0-15.5); LYMPH # 2.2 10^3/uL (1.5-5.0); LYMPH % 24.9 % (24.0-44.0); MEAN CORPUSCULAR HEMOGLOBIN 29.2 pg (27.0-33.0); MEAN CORPUSCULAR HGB CONC 33.8 g/dl (32.0-36.5); MEAN CORPUSCULAR VOLUME 86.6 fl (80.0-96.0); MONO # 0.6 10^3/uL (0.0-0.8); MONO % 6.2 % (2.0-8.0); NEUTROPHILS # 5.8 10^3/uL (1.5-8.5); PLATELET COUNT, AUTOMATED 366 10^3/uL (150-450); RED BLOOD COUNT 4.62 10^6/uL (4.00-5.40); WHITE BLOOD COUNT 8.8 10^3/uL (4.0-10.0)
[2020-05-18 18:07] LABS: ALT/SGPT 78 U/L (12-78); BILIRUBIN,DIRECT < 0.1 MG/DL (0.0-0.2); BILIRUBIN,TOTAL 0.2 MG/DL (0.2-1.0); BLOOD UREA NITROGEN 10 MG/DL (7-18); CALCIUM LEVEL 8.9 MG/DL (8.5-10.1); CARBON DIOXIDE LEVEL 30 MEQ/L (21-32); CHLORIDE LEVEL 105 MEQ/L (98-107); CREATININE FOR GFR 0.87 MG/DL (0.55-1.30); GLOMERULAR FILTRATION RATE > 60.0 (>60); GLUCOSE, FASTING 95 MG/DL (70-100); POTASSIUM SERUM 3.9 MEQ/L (3.5-5.1); SODIUM LEVEL 139 MEQ/L (136-145); TOTAL PROTEIN 8.3 GM/DL (6.4-8.2)
[2020-05-18 18:09] LABS: HCG, SERUM QUALITATIVE NEGATIVE (NEGATIVE)
[2020-05-18 18:18] LABS: ERYTHROCYTE SEDIMENTATION RATE 13 mm/hr (0-20)
[2020-05-18] MEDS ORDERED: ZOFR4TAB16 PO (18:49)
[2020-05-18 19:03] VITALS: BP 129/72
== END 2020-05-18 19:03 | disposition home or self-care (01) ==
LOC: M ED 14:56
DX: G43.909 Migraine, unspecified, not intractable, without status migrainosus (principal); R42 Dizziness and giddiness
CPT/HCPCS: 80048; 80076; 84703; 85025; 85652; 86140; 96360; 96375; 99284; J1200; J2765; U0003

== ENCOUNTER 2020-06-09 20:03 | Emergency (ER) | payer OTHER ==
[~2020-06-09] VITALS: Ht 147.3 cm; Wt 88.2 kg
[2020-06-09] MEDS ORDERED: SUMA25TA3 PO (20:08)
[2020-06-09] MEDS ORDERED: diphenhydrAMINE 50MG/ML VIAL (J1200) IV STA (22:42)
[2020-06-09] MEDS ORDERED: ACETAMINOPHEN 500 MG TAB PO ONE (22:45)
[2020-06-09] MEDS ORDERED: ONDANSETRON 4MG/2ML VIAL IV ONE (22:45)
[2020-06-09 23:25] LABS: BASO % 0.4 % (0.0-1.0); EOS # 0.1 10^3/uL (0.0-0.5); EOS % 1.1 % (0.0-3.0); HEMATOCRIT 39.8 % (36.0-47.0); HEMOGLOBIN 13.2 g/dl (12.0-15.5); LYMPH # 2.9 10^3/uL (1.5-5.0); LYMPH % 26.8 % (24.0-44.0); MEAN CORPUSCULAR HEMOGLOBIN 28.5 pg (27.0-33.0); MEAN CORPUSCULAR HGB CONC 33.2 g/dl (32.0-36.5); MONO # 0.6 10^3/uL (0.0-0.8); MONO % 5.5 % (2.0-8.0); NEUTROPHILS # 7.2 10^3/uL (1.5-8.5); NEUTROPHILS % 65.9 % (36.0-66.0); PLATELET COUNT, AUTOMATED 363 10^3/uL (150-450); RED BLOOD COUNT 4.63 10^6/uL (4.00-5.40); WHITE BLOOD COUNT 10.8 10^3/uL (4.0-10.0)
[2020-06-09 23:54] LABS: BILIRUBIN,DIRECT 0.1 MG/DL (0.0-0.2); BILIRUBIN,TOTAL 0.4 MG/DL (0.2-1.0); TOTAL PROTEIN 8.1 GM/DL (6.4-8.2)
[2020-06-10] MEDS ORDERED: CIPROFLOXACIN 500MG TABLET PO ONE (00:20)
[2020-06-10] MEDS ORDERED: KETOROLAC 30 MG/ML 1ML VIAL IV ONE (00:20)
[2020-06-10] MEDS ORDERED: CIPR-249 PO (00:34)
[2020-06-10 00:55] VITALS: BP 119/78
== END 2020-06-10 01:46 | disposition home or self-care (01) ==
LOC: M ED 20:03
DX: N39.0 Urinary tract infection, site not specified (principal); R42 Dizziness and giddiness; R51.9 Headache, unspecified; R11.0 Nausea
CPT/HCPCS: 80047; 80076; 81001; 83690; 84702; 85025; 87088; 87186; 96374; 96375; 99284; J1200; J2405

== ENCOUNTER 2020-08-10 07:54 | Inpatient (IN) | payer OTHER ==
[~2020-08-10] VITALS: Ht 149.9 cm; Wt 80.0 kg
[~2020-08-10 07:54] MED LIST changes: +CIPR-249 PO; +SUMA25TA3 PO
[2020-08-10] MEDS ORDERED: RIZA10TA58 PO (08:24)
[2020-08-10] MEDS ORDERED: LOES1TAB7 PO (08:24)
[2020-08-10 08:32] LABS: BASO # 0.1 10^3/uL (0.0-0.2); BASO % 0.7 % (0.0-1.0); EOS # 0.1 10^3/uL (0.0-0.5); EOS % 1.1 % (0.0-3.0); HEMATOCRIT 41.9 % (36.0-47.0); HEMOGLOBIN 13.9 g/dl (12.0-15.5); LYMPH # 1.8 10^3/uL (1.5-5.0); LYMPH % 25.2 % (24.0-44.0); MEAN CORPUSCULAR HEMOGLOBIN 28.7 pg (27.0-33.0); MEAN CORPUSCULAR HGB CONC 33.2 g/dl (32.0-36.5); MEAN CORPUSCULAR VOLUME 86.6 fl (80.0-96.0); MONO # 0.3 10^3/uL (0.0-0.8); MONO % 4.7 % (2.0-8.0); NEUTROPHILS # 4.7 10^3/uL (1.5-8.5); NEUTROPHILS % 67.9 % (36.0-66.0); PLATELET COUNT, AUTOMATED 356 10^3/uL (150-450); RED BLOOD COUNT 4.84 10^6/uL (4.00-5.40)
[2020-08-10] MEDS ORDERED: NS 1,000 ML IV ONE (08:35)
[2020-08-10 09:00] LABS: HCG, SERUM QUALITATIVE NEGATIVE (NEGATIVE)
[2020-08-10 09:23] LABS: ACETAMINOPHEN LEVEL < 2.0 UG/ML (10.0-30.0); ALT/SGPT 62 U/L (12-78); BILIRUBIN,DIRECT 0.2 MG/DL (0.0-0.2); BILIRUBIN,TOTAL 0.6 MG/DL (0.2-1.0); BLOOD UREA NITROGEN 10 MG/DL (7-18); CARBON DIOXIDE LEVEL 27 MEQ/L (21-32); CHLORIDE LEVEL 105 MEQ/L (98-107); CPK CREATINE PHOSPHOKINASE 77 U/L (26-192); CREATININE FOR GFR 0.92 MG/DL (0.55-1.30); ETHYL ALCOHOL (ETHANOL) < 0.003 % (0.000-0.010); GLOMERULAR FILTRATION RATE > 60.0 (>60); GLUCOSE, FASTING 115 MG/DL (70-100); POTASSIUM SERUM 3.7 MEQ/L (3.5-5.1); SALICYLATE LEVEL < 1.7 MG/DL (5.0-30.0); SODIUM LEVEL 138 MEQ/L (136-145); TOTAL PROTEIN 8.5 GM/DL (6.4-8.2)
[2020-08-10 11:27] LABS: AMPHETAMINES LEVEL URINE NEGATIVE (NEGATIVE); BARBITURATES URINE NEGATIVE (NEGATIVE); BENZODIAZEPINES URINE NEGATIVE (NEGATIVE); CANNABINOIDS URINE NEGATIVE (NEGATIVE); COCAINE METABOLITE URINE NEGATIVE (NEGATIVE); METHADONE URINE NEGATIVE (NEGATIVE); OPIATES URINE NEGATIVE (NEGATIVE); PHENCYCLIDINE URINE NEGATIVE (NEGATIVE)
--- NOTE | 2020-08-10 19:52 | ECGEPIP ---
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
[2020-08-11 09:48] LABS: RSV AMPLIFICATION NEGATIVE (NEGATIVE)
[2020-08-11] MEDS ORDERED: RIZATRIPTAN MLT 10 MG TAB PO PRN (11:15)
[2020-08-11] MEDS ORDERED: MAALOX 30 ML SUSP *UDC PO PRN (13:15)
[2020-08-11] MEDS ORDERED: MOM 30ML SUSPENSION UDC PO PRN (13:15)
[2020-08-11] MEDS ORDERED: ACETAMINOPHEN TAB 650MG DOSE (2X325MG) PO PRN (13:15)
[2020-08-11] MEDS ORDERED: traZODone 50 MG TAB PO PRN (13:15)
[2020-08-12 06:52] VITALS: BP 122/73
--- NOTE | 2020-08-12 09:55 | HPEPDOC ---
General Date of Admission Aug 11, 2020 at 13:13 Date of Service: Aug 12, 2020 Chief Complaint The patient is a 19-year-old female admitted with a reason for visit of Unspecified Depresssive Do. Source: Patient, RN/MD History of Present Illness 19-year-old female with history of obesity, cholelithiasis and choledocholithiasis, status post cholecystectomy, ERCP stenting and sphincterotomy was admitted to inpatient mental health for unspecified depression. She is being examined here today for a medical history and physical. patient does not offer any complaints this morning. Home Medications Scheduled Norethindrone-E.estradiol-Iron (Loestrin Fe 1-20 Tablet) 1 Each Tablet, 1 TAB PO DAILY, (Reported) Scheduled PRN Rizatriptan Benzoate (Rizatriptan) 10 Mg Tab.rapdis, 10 MG PO BID PRN for MIGRAINE, (Reported) Allergies Coded Allergies: No Known Allergies (Unverified , 02/11/19) Past Medical History Medical History Cholelithiasis , choledocholithiasis. S/p cholecystectomy, ERCP stent placement then at a later date biliary stent removal, sphincterotomy and lithotripsy of the stones in CBD and removal. Migraine. Family History Significant Family History: Cancer (maternal gransmother breast cancer, paternal aunt.), Diabetes (mother, paternal grandmother, paternal grandfather, maternal grandfather and maternal grandmother), Hypertension (father) Social History * Smoker: other (vape) Alcohol: Denies Drugs: denies A-FIB/CHADSVASC A-FIB History Current/History of A-Fib/PAF?: No Review of Systems Constitutional: Denies: Chills, Fever, Night Sweats Eyes: Denies: Pain, Vision change ENT: Denies: Head Aches, Ear Pain, Dysphagia Skin: Denies: Rash, Lesions, Breakdown Pulmonary: Denies: Dyspnea, Cough Cardiovascular: Denies: Chest Pain, Palpitations, Orthopnea, Paroxysmal Noc. Dyspnea, Lt Headedness Gastrointestinal: Denies: Nausea, Vomiting, Abdominal Pain, Diarrhea Genitourinary: Denies: Dysuria, Frequency, Incontinence, Retention Physical Examination General Exam: Positive: Alert, Cooperative, No Acute Distress Eye Exam: Positive: PERRLA, Conjunctiva & lids normal, EOMI; Negative: Sclera icteric Neck Exam: Positive: Supple; Negative: JVD, thyromegaly Chest Exam: Positive: Clear to auscultation, Normal air movement Heart Exam: Positive: Rate Normal, Regular Rhythm, Normal S1, Normal S2; Negative: Murmurs, Rubs Abdomen Exam: Positive: Normal bowel sounds, Soft; Negative: Tenderness, Hepatospenomegaly Extremity Exam: Negative: Clubbing, Cyanosis, Edema Vital Signs Vital Signs Date Time Temp Pulse Resp B/P (MAP) Pulse Ox O2 Delivery O2 Flow Rate FiO2 08/12/20 06:52 97.6 80 16 122/73 (89) 97 Room Air Assessment/Plan 19-year-old female with history of obesity, cholelithiasis and choledocholithiasis, status post cholecystectomy, ERCP stenting and sphincterotomy was admitted to inpatient mental health for unspecified depression. Depression as per psychiatry. No acute medical issues at present. SARTHAK JAMES MD Aug 12, 2020 08:57
[2020-08-12] MEDS: SERTRALINE HCL 50 MG TAB PO SCH (12:38)
[2020-08-12] MEDS: LORazepam 0.5 MG TAB PO PRN (16:02)
[2020-08-12 17:39] VITALS: BP 134/73
[2020-08-13 06:00] VITALS: BP 120/64
[2020-08-13] MEDS: SERTRALINE HCL 50 MG TAB PO SCH (08:50)
[2020-08-13] MEDS: LORazepam 0.5 MG TAB PO PRN ×2 (08:50→15:21)
--- NOTE | 2020-08-13 12:49 | MHIPNPDOC ---
[facility] Progress Note Progress Note DATE OF SERVICE: 08/13/20 HISTORY: 19 year female who was admitted after she overdosed on Trazodone, She reports feeling better, denies depression, feels calmer, denies SI. VITAL SIGNS: See below. NEW TEST RESULTS: See below CURRENT MEDICATIONS: See below. MENTAL STATUS EXAMINATION: General Appearance: well groomed, appears stated age, hospital scubs/clothing Build: average Demeanor: cooperative Eye Contact: average Activity: calm Behavior: cooperative Speech: clear, spontaneous, reg/rate,rhythm,volume Mood: euthymic Affect: congruent with mood Thought Process: logical/linear Thought Content (Delusions): denies SI, HI, AVH Thought Content (Other): guilty Thought Content (Aggressive): none reported Perception (Hallucinations): none reported Perception (Other): none reported Cognition (Impairment of): none reported Cognition(Intelligence Est.): average Oriented: Awake, Alert, Oriented times three Insight: fair Psychosis: Denies DIAGNOSES: 1. Major Depressive Disorder, recurrent, severe 2. PTSD 3. Recent suicide attempt ASSESSMENT: The patient didn't fall asleep, will prescribe Remeron 15 mgs Po QHS MANAGEMENT PLAN: As above TIME SPENT: 15 minutes. Vital Signs Vital Signs Date Time Temp Pulse Resp B/P (MAP) Pulse Ox O2 Delivery O2 Flow Rate FiO2 08/13/20 06:00 98.7 81 16 120/64 (82) 97 Room Air Current Medications Current Medications Medications (Trade) Dose Ordered Sig/Ximena Route PRN Reason Start Time Stop Time Status Last Admin Dose Admin Acetaminophen (Tylenol Tab) 650 mg Q6HP PRN PO HEADACHE or DISCOMFORT 08/11/20 13:15 Al Hydrox/Mg Hydrox/Simethicone (Mylanta) 30 ml Q4HP PRN PO HEARTBURN/INDIGESTION 08/11/20 13:15 Home Med (Med Rec Complete!) ASDIRECTED XX 08/11/20 11:10 08/11/20 11:12 DC Lorazepam (Ativan) 1 mg TID PRN PO ANXIETY/AGITATION 08/12/20 12:20 08/13/20 08:50 Magnesium Hydroxide (Milk Of Magnesia) 30 ml DAILYPRN PRN PO CONSTIPATION 08/11/20 13:15 Rizatriptan Benzoate (Maxalt-Senior Mechanical Development Engineer) 10 mg BID PRN PO MIGRAINE 08/11/20 11:15 08/12/20 13:24 DC Sertraline HCl (Zoloft) 50 mg DAILY PO 08/12/20 09:00 08/13/20 08:50 Trazodone HCl (Desyrel) 50 mg QHSP PRN PO INSOMNIA 08/11/20 13:15 Hold Allergies Coded Allergies: No Known Allergies (Unverified , 02/11/19) MEENA DE LA TORRE MD Aug 13, 2020 12:48
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
[2020-08-13 18:09] VITALS: BP 140/78
[2020-08-13] MEDS ORDERED: MIRTAZAPINE 15 MG TAB PO SCH (21:00)
[2020-08-14 06:30] VITALS: BP 132/87
[2020-08-14] MEDS: SERTRALINE HCL 50 MG TAB PO SCH (08:30)
[2020-08-14] MEDS ORDERED: SERT50TA29 PO (09:53)
[2020-08-14] MEDS ORDERED: MIRT-62 PO (09:53)
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
== END 2020-08-14 10:02 | disposition home or self-care (01) | DRG 885 ==
LOC: EDBD 07:54 → M ED 07:54 → M ED INP 08-11 13:13 → M PSY 08-11 15:50
PROVIDERS: ADMIT Psychiatry & Neurology Psychiatry; ATTEND Psychiatry & Neurology Psychiatry
DX: F33.2 Major depressive disorder, recurrent severe without psychotic features (principal); F43.10 Post-traumatic stress disorder, unspecified; Z91.5 Personal history of self-harm; Z91.410 Personal history of adult physical and sexual abuse; G43.909 Migraine, unspecified, not intractable, without status migrainosus; Z90.49 Acquired absence of other specified parts of digestive tract; Z79.899 Other long term (current) drug therapy; E66.9 Obesity, unspecified; Z68.35 Body mass index [BMI] 35.0-35.9, adult; Z63.0 Problems in relationship with spouse or partner